=== PATIENT | female | born 1975 | race Caucasian/White ===

== ENCOUNTER 2019-01-31 21:43 | Emergency (ER) | payer OTHER ==
[2019-01-31 21:54] VITALS: BP 107/52; PULSE 66; TEMP 98.2; BMI 33.7
--- NOTE | 2019-01-31 23:31 | PDOC ---
History of Present Illness - General Chief Complaint: Migraine Headache Stated Complaint: MIGRAINE Past History - Past Medical History Allergies/Adverse Reactions: Allergies Allergy/AdvReac Type Severity Reaction Status Date / Time No Known Allergies Allergy Verified 01/31/19 21:50 COPD: No Psychiatric Problems: Yes (anxiety/depression/migraines) - Suicide/Smoking/Psychosocial Hx Smoking History: Never smoked Have you smoked in the past 12 months: No Information on smoking cessation initiated: No Hx Alcohol Use: No Drug/Substance Use Hx: No Review of Systems - Review of Systems Able to Perform ROS?: Yes Is the patient limited Upper Sorbian proficient: No *Physical Exam - Vital Signs Last Vital Signs Temp Pulse Resp BP Pulse Ox 98.2 F 66 16 107/52 L 100 01/31/19 21:50 01/31/19 21:50 01/31/19 21:50 01/31/19 21:50 01/31/19 21:50
--- NOTE | 2019-01-31 23:47 | PDOC ---
History of Present Illness - General Chief Complaint: Migraine Headache Stated Complaint: MIGRAINE History Source: Patient Exam Limitations: No Limitations - History of Present Illness Initial Comments: 01/31/19 23:42 43 yo female pmh migraines and depression presents to the ED for MORRIS and 3 episodes NB/NB vomiting. Pt states the MORRIS started around 9 pm, described as the same quality and intensity as past migraines with pounding headaches in the bilateral temporal region. Denies trauma, neck stiffness, LOC, weakness/sensory deficits on 1 side, changes in vision, F/C, CP, SOB, abdominal pain. Pt states she takes Excedrin with minimal relief and the only medication that works for her is Fiorocet but her Primary Doctor stopped prescribed it 1 year ago (no medical concern as per patient). Past History - Past Medical History Allergies/Adverse Reactions: Allergies Allergy/AdvReac Type Severity Reaction Status Date / Time No Known Allergies Allergy Verified 01/31/19 21:50 Home Medications: Ambulatory Orders NK [No Known Home Medication] 02/01/19 COPD: No Psychiatric Problems: Yes (anxiety/depression/migraines) - Suicide/Smoking/Psychosocial Hx Smoking History: Never smoked Have you smoked in the past 12 months: No Information on smoking cessation initiated: No Hx Alcohol Use: No Drug/Substance Use Hx: No Review of Systems - Review of Systems Constitutional: No: Chills, Fever HEENTM: No: Recent change in vision, Double Vision Respiratory: No: Shortness of Breath Cardiac (ROS): No: Chest Pain, Edema ABD/GI: Yes: Nausea, Vomiting (resolved). No: Constipated, Diarrhea, Abdominal cramping : No: Burning, Dysuria, Frequency, Flank Pain, Hematuria, Incontinence Musculoskeletal: No: Back Pain Neurological: Yes: Headache. No: Numbness, Paresthesia, Weakness, Unsteady Gait , Ataxia, Dizziness *Physical Exam - Vital Signs Last Vital Signs Temp Pulse Resp BP Pulse Ox 98.2 F 66 16 107/52 L 100 01/31/19 21:50 01/31/19 21:50 01/31/19 21:50 01/31/19 21:50 01/31/19 21:50 - Physical Exam General Appearance: Yes: Nourished, Appropriately Dressed. No: Apparent Distress HEENT: positive: EOMI, JENNY, Hearing Grossly Normal. negative: Photophobia, Scleral Icterus (R), Scleral Icterus (L) Neck: positive: Supple. negative: Carotid bruit Respiratory/Chest: positive: Lungs Clear, Normal Breath Sounds. negative: Crackles, Rales, Rhonchi, Wheezing Cardiovascular: positive: Regular Rhythm, Regular Rate, S1, S2. negative: Edema , JVD, Murmur Vascular Pulses: Dorsalis-Pedis (R): 4+, Doralis-Pedis (L): 4+ Gastrointestinal/Abdominal: positive: Flat, Soft. 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 negative: Facial Droop, Numbness, Sensory Deficit, Finger to Nose (normal), Confused, Disoriented Medical Decision Making - Medical Decision Making 02/01/19 00:29 43 yo female pmh migraines presents to the ED with MORRIS described as same quality and intensity as past migraines. Denies LOC, neck stiffness, trauma, neuro deficits, meningeal s/s. Vitals WNL DDX INLT: migraine, SAH (unlikely due to similar past morris and no neuro deficits) pseudotumor (unlikely, no visual s/s) Will trial pt with Fiorocet for headache and reassess. If pts MORRIS improves, she can safely be DC home with PCP f/u and Neuro referral *DC/Admit/Observation/Transfer Diagnosis at time of Disposition: Migraine - Discharge Dispostion Disposition: HOME Condition at time of disposition: Stable Decision to Admit order: No - Referrals Referrals: Ermias Garcia MD [Staff Physician] - - Patient Instructions Printed Discharge Instructions: DI for Migraine Additional Instructions: Please see your Primary Doctor within the next 48 hours and make an appointment with the Neurologist referred to you. Continue taking your home dosed medications as prescribed. Return to the ER for new or concerning symptoms including but not limited to: severe headaches, high fevers, changes in vision, weakness on 1 side of your body, confusion. Thank you - Post Discharge Activity
[2019-02-01] MEDS ORDERED: ACETAMINOPHEN/CAFFEINE/BUTALBITAL 1 TAB PO ONE (02:08)
--- NOTE | 2019-02-01 02:11 | PDOC ---
Documentation entered by Angela Contreras SCRIBE, acting as scribe for Janelle Jade MD. Janelle Jade MD: This documentation has been prepared by the Diane knight Adrianna, SCRIBE, under my direction and personally reviewed by me in its entirety. I confirm that the documentation accurately reflects all work, treatment, procedures, and medical decision making performed by me. Attending Attestation - Resident Resident Name: AdeelHector - ED Attending Attestation I have performed the following: I have examined & evaluated the patient, The case was reviewed & discussed with the resident, I agree w/resident's findings & plan, Exceptions are as noted - HPI HPI: The patient is a 43 year old female, with a significant PMH of migraines and depression, who presents to the ED for evaluation of headache and vomit for 3 hours. Patient notes her headache began earlier tonight, which is identical to her typical recurrent migraines. She notes the headache was felt in the bilateral frontal region, and she describes it as a pounding sensation. Reports was triggered by sitting out in the sun today which often brings on her migraines. +photophobia. She additionally reports 3 episodes of NBNB vomit which is also typical of her migraines. She took excedrin earlier tonight but was unable to keep it down secondary to the vomiting. Patient notes she has responded to Fioricet in the past, but her PCP stopped prescribing it. Denies neck pain, back pain, focal weakness/numbness, visual changes, cp, sob, abd pain , LE edema. Allergies: NKA, NKDA Surgical History: None reported Social History: None reported PCP: NOS - Physicial Exam PE: 02/01/19 02:08 GENERAL: Awake, alert, and fully oriented, in no acute distress HEAD: No signs of trauma EYES: PERRLA, EOMI, sclera anicteric, conjunctiva clear ENT: Auricles normal inspection, hearing grossly normal, nares patent, oropharynx clear without exudates. Moist mucosa NECK: Normal ROM, supple, no lymphadenopathy, JVD, or masses LUNGS: Breath sounds equal, clear to auscultation bilaterally. No wheezes, and no crackles HEART: Regular rate and rhythm, normal S1 and S2, no murmurs, rubs or gallops ABDOMEN: Soft, nontender, normoactive bowel sounds. No guarding, no rebound. No masses EXTREMITIES: Normal range of motion, no edema. No clubbing or cyanosis. No cords, erythema, or tenderness NEUROLOGICAL: Normal speech, cranial nerves intact, negative pronator drift, 5/ 5 strength in all 4 extremities, normal sensation to light touch in all 4 extremities, normal cerebellar exam, normal gait, normal reflexes and tone SKIN: Warm, Dry, normal turgor, no rashes or lesions noted. - Medical Decision Making 02/01/19 02:08 43yo F presents to the ED with typical migraine w/o aura. No change in quality or severity today. In the past, responds well to fioricet but ran out at home Vitals and exam unremarakble. Pt is neuro intact UPT neg WIll order dose fioricet, reassess Case signed out to overnight attending for further mgmt/dispo
[2019-02-01] MEDS ORDERED: ACETAMINOPHEN/CAFFEINE/BUTALBITAL 1 TAB ONE (02:44)
== END 2019-02-01 03:02 | disposition home or self-care (01) ==
LOC: JER 21:43 → EDBD 21:43 → JERFT 21:43 → JER 02-01 03:02
DX: G43.909 Migraine, unspecified, not intractable, without status migrainosus (principal)
CPT/HCPCS: 84703; 99281-25

== ENCOUNTER → 2021-11-16 | Day surgery (SDC) | payer OTHER | END | disposition home or self-care (01) | LOC: JRADUS-SUR 10:50 | PROVIDERS: ATTEND Registered Nurse | PROC: 0HBU3ZX Excision of Left Breast, Percutaneous Approach, Diagnostic (ICD-10-PCS; principal; 2021-11-16) | PROC: 07B63ZX Excision of Left Axillary Lymphatic, Percutaneous Approach, Diagnostic (ICD-10-PCS; 2021-11-16) | PROC: BH41ZZZ Ultrasonography of Left Breast (ICD-10-PCS; 2021-11-16) | DX: C50.412 Malignant neoplasm of upper-outer quadrant of left female breast (principal); C50.812 Malignant neoplasm of overlapping sites of left female breast; C77.3 Secondary and unspecified malignant neoplasm of axilla and upper limb lymph nodes; Z17.0 Estrogen receptor positive status [ER+] | CPT/HCPCS: 19083; 19084; 76642-TC-LT; 77065-TC; 87899; 88305-TC; 88307-TC; 88342-TC; A4648 ==

== ENCOUNTER 2022-01-18 07:46 | Day surgery (SDC) | payer OTHER ==
[2022-01-18] MEDS ORDERED: DEXAMETHASONE SODIUM PHOSPHATE 10 MG in SODIUM CHLORIDE 50 ML IVPB ONE (10:00)
[2022-01-18] MEDS ORDERED: SODIUM CHLORIDE 250 ML IV ONE (10:00)
[2022-01-18] MEDS ORDERED: FOSAPREPITANT DIMEGLUMINE 150 MG in SODIUM CHLORIDE 145 ML IVPB ONE (10:00)
[2022-01-18] MEDS ORDERED: PALONOSETRON HCL 0.25 MG/5 ML VIAL IVPUSH ONE (10:00)
[2022-01-18] MEDS ORDERED: DOCETAXEL 124 MG in SODIUM CHLORIDE 250 ML IV ONE (10:30)
[2022-01-18] MEDS ORDERED: CYCLOPHOSPHAMIDE INJECTION 980 MG in SODIUM CHLORIDE 250 ML IVPB ONE (11:30)
[2022-01-18 11:50] LABS: BASO % 0.7 % (0-2.0); EOS % 1.2 % (0-4.5); HEMATOCRIT 37.7 % (32.4-45.2); HEMOGLOBIN 12.6 GM/dL (10.7-15.3); LYMPH % 38.7 % (8-40); MCH 28.9 pg (25.7-33.7); MCHC 33.4 g/dl (32.0-36.0); MEAN CELL VOLUME 86.4 fl (80-96); MEAN PLT VOLUME 9.4 fl (7.5-11.1); MONO % 8.8 % (3.8-10.2); NEUT % 50.6 % (42.8-82.8); PLATELET COUNT 227 10^3/uL (134-434); RBC 4.37 M/mm3 (3.60-5.2); RDW 14.1 % (11.6-15.6); WHITE BLOOD COUNT 3.7 K/mm3 (4.0-10.0)
[2022-01-18 12:11] LABS: BLOOD UREA NITROGEN 11.1 mg/dL (7-18); CALCIUM 9.2 mg/dL (8.5-10.1)
[2022-01-18 12:12] LABS: ALBUMIN 3.7 g/dl (3.4-5.0); MAGNESIUM 1.9 mg/dL (1.8-2.4)
[2022-01-18 12:14] LABS: BILIRUBIN,DIRECT 0.1 mg/dL (0.0-0.2)
[2022-01-18 12:15] LABS: CREATININE 0.6 mg/dL (0.55-1.3)
[2022-01-18 12:16] LABS: BILIRUBIN,TOTAL 0.4 mg/dL (0.2-1); TOT PROT 7.8 g/dl (6.4-8.2)
[2022-01-18 17:05] VITALS: BP 130/72; PULSE 68; TEMP 98.8
[2022-01-18] MEDS ORDERED: PORTA CATH FLUSH 10 ML IVPUSH PRN (17:05)
== END 2022-01-18 16:30 | disposition home or self-care (01) ==
LOC: JONCCHEMO 07:46
PROVIDERS: ATTEND Internal Medicine Hematology & Oncology
DX: Z51.11 Encounter for antineoplastic chemotherapy (principal); C50.412 Malignant neoplasm of upper-outer quadrant of left female breast; C77.3 Secondary and unspecified malignant neoplasm of axilla and upper limb lymph nodes; Z17.0 Estrogen receptor positive status [ER+]
CPT/HCPCS: 36415; 80048; 80076; 82378; 83735; 85025; 86300; 96361; 96367; 96375; 96413; 96417; J1453; J2469; J9070; J9171

== ENCOUNTER 2022-01-19 07:05 | Day surgery (SDC) | payer OTHER ==
[2022-01-19] MEDS ORDERED: PEGFILGRASTIM-CBQV (UDENYCA) 6 MG/0.6 ML SYRINGE SQ ONE (14:00)
[2022-01-19] MEDS ORDERED: MAGNESIUM 1GM/D5W - 1 GM/100 ML IVPB IVPB ONE (14:00)
[2022-01-19] MEDS ORDERED: D5-NS + 20 MEQ KCL - 20 MEQ/1,000 ML INFUS.BAG IV ONE (14:00)
[2022-01-19] MEDS ORDERED: DEXAMETHASONE SODIUM PHOSPHATE 8 MG in SODIUM CHLORIDE 50 ML IVPB ONE (14:00)
[2022-01-19 16:19] VITALS: BP 132/66; PULSE 63; TEMP 98.5
[2022-01-19] MEDS ORDERED: PORTA CATH FLUSH 10 ML IVPUSH PRN (16:19)
== END 2022-01-19 16:30 | disposition home or self-care (01) ==
LOC: JONCCHEMO 07:05
PROVIDERS: ATTEND Internal Medicine Hematology & Oncology
PROC: 3E043GC Introduction of Other Therapeutic Substance into Central Vein, Percutaneous Approach (ICD-10-PCS; principal; 2022-01-19)
PROC: 3E013GC Introduction of Other Therapeutic Substance into Subcutaneous Tissue, Percutaneous Approach (ICD-10-PCS; 2022-01-19)
DX: C50.412 Malignant neoplasm of upper-outer quadrant of left female breast (principal); C77.3 Secondary and unspecified malignant neoplasm of axilla and upper limb lymph nodes; Z17.0 Estrogen receptor positive status [ER+]; Z76.89 Persons encountering health services in other specified circumstances
CPT/HCPCS: 96365; 96366; 96367; 96372; 96375; Q5111

== ENCOUNTER 2022-01-23 08:42 | Emergency (ER) | payer OTHER ==
[2022-01-23 08:53] VITALS: BP 118/61; PULSE 105; TEMP 99.6; BMI 43.2
[2022-01-23] MEDS ORDERED: SODIUM CHLORIDE 0.9% 500 ML INFUS.BAG IV ONE (10:09)
[2022-01-23] MEDS ORDERED: METOCLOPRAMIDE HCL INJECTION 10 MG/2 ML VIAL IVPB ONE (10:09)
[2022-01-23] MEDS ORDERED: ACETAMINOPHEN 1000 MG/100 ML BAG IVPB ONE (10:09)
[2022-01-23] MEDS ORDERED: METOCLOPRAMIDE HCL INJECTION 10 MG/2 ML VIAL ONE (10:47)
[2022-01-23] MEDS ORDERED: ACETAMINOPHEN INJECTION 100 ML IVPB ONE (10:47)
[2022-01-23] MEDS ORDERED: KETOROLAC TROMETHAMINE 15 MG/ML VIAL IVPUSH ONE (12:14)
[2022-01-23] MEDS ORDERED: KETOROLAC TROMETHAMINE 15 MG/ML VIAL ONE (12:38)
== END 2022-01-23 12:56 | disposition home or self-care (01) ==
LOC: JER 08:42
PROC: 3E033GC Introduction of Other Therapeutic Substance into Peripheral Vein, Percutaneous Approach (ICD-10-PCS; principal; 2022-01-23)
DX: G43.909 Migraine, unspecified, not intractable, without status migrainosus (principal)
CPT/HCPCS: 96374; 96375; 99284-25

== ENCOUNTER 2022-02-07 07:31 | Day surgery (SDC) | payer OTHER ==
[2022-02-07] MEDS ORDERED: SODIUM CHLORIDE 250 ML IV ONE (09:00)
[2022-02-07] MEDS ORDERED: FOSAPREPITANT DIMEGLUMINE 150 MG in SODIUM CHLORIDE 145 ML IVPB ONE (09:30)
[2022-02-07] MEDS ORDERED: DEXAMETHASONE SODIUM PHOSPHATE 8 MG in SODIUM CHLORIDE 50 ML IVPB ONE (09:30)
[2022-02-07] MEDS ORDERED: PALONOSETRON HCL 0.25 MG/5 ML VIAL IVPUSH ONE (09:30)
[2022-02-07] MEDS ORDERED: DOCETAXEL 120 MG in SODIUM CHLORIDE 250 ML IV ONE (10:00)
[2022-02-07] MEDS ORDERED: CYCLOPHOSPHAMIDE INJECTION 980 MG in SODIUM CHLORIDE 250 ML IVPB ONE (11:00)
[2022-02-07 11:58] VITALS: TEMP 98.5
[2022-02-07 17:42] VITALS: BP 121/71; PULSE 84
[2022-02-07] MEDS ORDERED: PORTA CATH FLUSH 10 ML IVPUSH PRN (17:42)
== END 2022-02-07 15:30 | disposition home or self-care (01) ==
LOC: JONCCHEMO 07:31
PROVIDERS: ATTEND Internal Medicine Hematology & Oncology
PROC: 3E043GC Introduction of Other Therapeutic Substance into Central Vein, Percutaneous Approach (ICD-10-PCS; principal; 2022-02-07)
PROC: 3E013GC Introduction of Other Therapeutic Substance into Subcutaneous Tissue, Percutaneous Approach (ICD-10-PCS; 2022-02-07)
DX: C50.412 Malignant neoplasm of upper-outer quadrant of left female breast (principal); C77.3 Secondary and unspecified malignant neoplasm of axilla and upper limb lymph nodes; Z17.0 Estrogen receptor positive status [ER+]; Z76.89 Persons encountering health services in other specified circumstances
CPT/HCPCS: 96361; 96365; 96372; 96375; J1453; J2469; J9070; J9171

== ENCOUNTER 2022-02-08 07:56 | Day surgery (SDC) | payer OTHER ==
[2022-02-07 11:56] LABS: BASO % 0.4 % (0-2.0); HEMATOCRIT 36.1 % (32.4-45.2); MCH 28.6 pg (25.7-33.7); MCHC 33.2 g/dl (32.0-36.0); MEAN CELL VOLUME 85.9 fl (80-96); MEAN PLT VOLUME 9.3 fl (7.5-11.1); MONO % 13.2 % (3.8-10.2); NEUT % 57.4 % (42.8-82.8); PLATELET COUNT 314 10^3/uL (134-434); RDW 14.3 % (11.6-15.6); WHITE BLOOD COUNT 6.2 K/mm3 (4.0-10.0)
[2022-02-07 12:16] LABS: ALBUMIN 3.8 g/dl (3.4-5.0); CALCIUM 9.8 mg/dL (8.5-10.1)
[2022-02-07 12:20] LABS: BILIRUBIN,DIRECT 0.1 mg/dL (0.0-0.2); BILIRUBIN,TOTAL 0.4 mg/dL (0.2-1); CREATININE 0.5 mg/dL (0.55-1.3)
[2022-02-07 12:21] LABS: TOT PROT 7.3 g/dl (6.4-8.2)
[2022-02-08] MEDS ORDERED: D5-NS + 20 MEQ KCL - 20 MEQ/1,000 ML INFUS.BAG IV ONE (09:00)
[2022-02-08] MEDS ORDERED: DEXAMETHASONE SODIUM PHOSPHATE 6 MG in SODIUM CHLORIDE 50 ML IVPB ONE (10:00)
[2022-02-08] MEDS ORDERED: MAGNESIUM 1GM/D5W - 1 GM/100 ML IVPB IVPB ONE (10:00)
[2022-02-08] MEDS ORDERED: PEGFILGRASTIM-CBQV (UDENYCA) 6 MG/0.6 ML SYRINGE SQ ONE (10:00)
[2022-02-08 13:48] VITALS: TEMP 98.7
[2022-02-08 18:26] VITALS: BP 93/53; PULSE 69
[2022-02-08] MEDS ORDERED: PORTA CATH FLUSH 10 ML IVPUSH PRN (18:26)
== END 2022-02-08 17:00 | disposition home or self-care (01) ==
LOC: JONCCHEMO 07:56
PROVIDERS: ATTEND Internal Medicine Hematology & Oncology
PROC: 3E043GC Introduction of Other Therapeutic Substance into Central Vein, Percutaneous Approach (ICD-10-PCS; principal; 2022-02-08)
PROC: 3E013GC Introduction of Other Therapeutic Substance into Subcutaneous Tissue, Percutaneous Approach (ICD-10-PCS; 2022-02-08)
DX: C50.412 Malignant neoplasm of upper-outer quadrant of left female breast (principal); C77.3 Secondary and unspecified malignant neoplasm of axilla and upper limb lymph nodes; Z17.0 Estrogen receptor positive status [ER+]; Z76.89 Persons encountering health services in other specified circumstances
CPT/HCPCS: 36415; 80048; 80076; 83735; 85025; 96365; 96372; 96375; Q5111

== ENCOUNTER 2022-02-28 07:20 | Day surgery (SDC) | payer OTHER ==
[2022-02-28] MEDS ORDERED: FOSAPREPITANT DIMEGLUMINE 150 MG in SODIUM CHLORIDE 145 ML IVPB ONE (10:00)
[2022-02-28] MEDS ORDERED: PALONOSETRON HCL 0.25 MG/5 ML VIAL IVPUSH ONE (10:00)
[2022-02-28] MEDS ORDERED: SODIUM CHLORIDE 250 ML IV ONE (10:00)
[2022-02-28] MEDS ORDERED: DEXAMETHASONE SODIUM PHOSPHATE 8 MG in SODIUM CHLORIDE 50 ML IVPB ONE (10:00)
[2022-02-28] MEDS ORDERED: DOCETAXEL 120 MG in SODIUM CHLORIDE 250 ML IV ONE (10:30)
[2022-02-28 10:45] LABS: BASO % 0.8 % (0-2.0); EOS % 0.1 % (0-4.5); HEMATOCRIT 33.8 % (32.4-45.2); HEMOGLOBIN 11.3 GM/dL (10.7-15.3); LYMPH % 26.5 % (8-40); MCH 28.5 pg (25.7-33.7); MCHC 33.4 g/dl (32.0-36.0); MEAN CELL VOLUME 85.3 fl (80-96); MEAN PLT VOLUME 9.1 fl (7.5-11.1); MONO % 10.8 % (3.8-10.2); NEUT % 61.8 % (42.8-82.8); PLATELET COUNT 288 10^3/uL (134-434); RBC 3.96 M/mm3 (3.60-5.2); RDW 14.8 % (11.6-15.6); WHITE BLOOD COUNT 5.8 K/mm3 (4.0-10.0)
[2022-02-28 11:06] LABS: CHLORIDE 108 mmol/L (98-107); SODIUM 142 mmol/L (136-145)
[2022-02-28 11:09] LABS: BLOOD UREA NITROGEN 9.3 mg/dL (7-18); CALCIUM 9.4 mg/dL (8.5-10.1); GLUCOSE,RANDOM 85 mg/dL (74-106)
[2022-02-28 11:10] LABS: ALBUMIN 3.7 g/dl (3.4-5.0); ANION GAP 10 MMOL/L (8-16); CO2 24 mmol/L (21-32); MAGNESIUM 1.9 mg/dL (1.8-2.4)
[2022-02-28 11:13] LABS: CREATININE 0.5 mg/dL (0.55-1.3); SGOT/AST 19 U/L (15-37); SGPT/ALT 28 U/L (13-61)
[2022-02-28 11:14] LABS: TOT PROT 7.4 g/dl (6.4-8.2)
[2022-02-28 11:15] LABS: ALK PHOS 94 U/L (45-117)
[2022-02-28 11:17] LABS: BILIRUBIN,TOTAL 0.4 mg/dL (0.2-1)
[2022-02-28 11:19] LABS: BILIRUBIN,DIRECT < 0.1 mg/dL (0.0-0.2)
[2022-02-28] MEDS ORDERED: CYCLOPHOSPHAMIDE INJECTION 980 MG in SODIUM CHLORIDE 250 ML IVPB ONE (11:30)
[2022-02-28 14:33] VITALS: RESP 18; TEMP 98.5
[2022-02-28 14:36] VITALS: BP 106/63; PULSE 74
== END 2022-02-28 14:37 | disposition home or self-care (01) ==
LOC: JONCCHEMO 07:20
PROVIDERS: ATTEND Internal Medicine Hematology & Oncology
DX: Z51.11 Encounter for antineoplastic chemotherapy (principal); C50.412 Malignant neoplasm of upper-outer quadrant of left female breast; C77.3 Secondary and unspecified malignant neoplasm of axilla and upper limb lymph nodes; Z17.0 Estrogen receptor positive status [ER+]
CPT/HCPCS: 36415; 80048; 80076; 83735; 85025; 96367; 96375; 96413; 96417; J1453; J2469; J9070; J9171

== ENCOUNTER 2022-03-01 07:01 | Day surgery (SDC) | payer OTHER ==
[2022-03-01] MEDS ORDERED: D5-NS + 20 MEQ KCL - 20 MEQ/1,000 ML INFUS.BAG IV ONE (10:00)
[2022-03-01] MEDS ORDERED: MAGNESIUM 1GM/D5W - 1 GM/100 ML IVPB IVPB ONE (10:00)
[2022-03-01] MEDS ORDERED: PEGFILGRASTIM-CBQV (UDENYCA) 6 MG/0.6 ML SYRINGE SQ ONE (10:00)
[2022-03-01] MEDS ORDERED: DEXAMETHASONE SODIUM PHOSPHATE 6 MG in DEXTROSE 5%-WATER - 50 ML IVPB ONE (10:00)
[2022-03-01 14:54] VITALS: BP 106/63; PULSE 80; RESP 20; TEMP 98.5
[2022-03-01] MEDS ORDERED: PORTA CATH FLUSH 10 ML IVPUSH PRN (14:56)
== END 2022-03-01 15:38 | disposition home or self-care (01) ==
LOC: JONCCHEMO 07:01
PROVIDERS: ATTEND Internal Medicine Hematology & Oncology
PROC: 3E043GC Introduction of Other Therapeutic Substance into Central Vein, Percutaneous Approach (ICD-10-PCS; principal; 2022-03-01)
PROC: 3E013GC Introduction of Other Therapeutic Substance into Subcutaneous Tissue, Percutaneous Approach (ICD-10-PCS; 2022-03-01)
DX: C50.412 Malignant neoplasm of upper-outer quadrant of left female breast (principal); C77.3 Secondary and unspecified malignant neoplasm of axilla and upper limb lymph nodes; Z17.0 Estrogen receptor positive status [ER+]
CPT/HCPCS: 96365; 96372; 96375; Q5111

== ENCOUNTER 2022-03-21 08:14 | Day surgery (SDC) | payer OTHER ==
[2022-03-21] MEDS ORDERED: SODIUM CHLORIDE 250 ML IV ONE (09:00)
[2022-03-21] MEDS ORDERED: FOSAPREPITANT DIMEGLUMINE 150 MG in SODIUM CHLORIDE 145 ML IVPB ONE (10:00)
[2022-03-21] MEDS ORDERED: PALONOSETRON HCL 0.25 MG/5 ML VIAL IVPUSH ONE (10:00)
[2022-03-21] MEDS ORDERED: DEXAMETHASONE SODIUM PHOSPHATE 8 MG in SODIUM CHLORIDE 50 ML IVPB ONE (10:00)
[2022-03-21] MEDS ORDERED: DOCETAXEL 120 MG in SODIUM CHLORIDE 250 ML IV ONE (10:30)
[2022-03-21] MEDS ORDERED: CYCLOPHOSPHAMIDE INJECTION 980 MG in SODIUM CHLORIDE 250 ML IVPB ONE (11:30)
[2022-03-21 11:41] LABS: BASO % 0.7 % (0-2.0); EOS % 0.1 % (0-4.5); HEMATOCRIT 31.5 % (32.4-45.2); HEMOGLOBIN 10.6 GM/dL (10.7-15.3); LYMPH % 30.8 % (8-40); MCH 29.2 pg (25.7-33.7); MCHC 33.6 g/dl (32.0-36.0); MEAN CELL VOLUME 86.8 fl (80-96); MEAN PLT VOLUME 9.1 fl (7.5-11.1); MONO % 13.5 % (3.8-10.2); NEUT % 54.9 % (42.8-82.8); PLATELET COUNT 276 10^3/uL (134-434); RBC 3.62 M/mm3 (3.60-5.2); RDW 16.7 % (11.6-15.6); WHITE BLOOD COUNT 4.3 K/mm3 (4.0-10.0)
[2022-03-21 12:08] LABS: ALBUMIN 3.8 g/dl (3.4-5.0); CALCIUM 9.4 mg/dL (8.5-10.1); MAGNESIUM 2.1 mg/dL (1.8-2.4)
[2022-03-21 12:09] LABS: BLOOD UREA NITROGEN 12.7 mg/dL (7-18)
[2022-03-21 12:11] VITALS: RESP 18
[2022-03-21 12:11] LABS: BILIRUBIN,DIRECT 0.1 mg/dL (0.0-0.2); CREATININE 0.6 mg/dL (0.55-1.3)
[2022-03-21 12:13] LABS: BILIRUBIN,TOTAL 0.3 mg/dL (0.2-1); TOT PROT 7.1 g/dl (6.4-8.2)
[2022-03-21 14:47] VITALS: TEMP 98
[2022-03-21] MEDS ORDERED: PORTA CATH FLUSH 10 ML IVPUSH PRN (14:50)
[2022-03-21 15:50] VITALS: BP 93/42; PULSE 75
== END 2022-03-21 15:53 | disposition home or self-care (01) ==
LOC: JONCCHEMO 08:14
PROVIDERS: ATTEND Internal Medicine Hematology & Oncology
DX: Z51.11 Encounter for antineoplastic chemotherapy (principal); C50.412 Malignant neoplasm of upper-outer quadrant of left female breast; C77.3 Secondary and unspecified malignant neoplasm of axilla and upper limb lymph nodes; Z17.0 Estrogen receptor positive status [ER+]
CPT/HCPCS: 36415; 80048; 80076; 82378; 83735; 85025; 96367; 96375; 96413; 96417; J1453; J2469; J9070; J9171

== ENCOUNTER 2022-03-22 07:09 | Day surgery (SDC) | payer OTHER ==
[2022-03-22] MEDS ORDERED: MAGNESIUM 1GM/D5W - 1 GM/100 ML IVPB IVPB ONE (10:00)
[2022-03-22] MEDS ORDERED: PEGFILGRASTIM-CBQV (UDENYCA) 6 MG/0.6 ML SYRINGE SQ ONE (10:00)
[2022-03-22] MEDS ORDERED: DEXAMETHASONE SODIUM PHOSPHATE 6 MG in DEXTROSE 5%-WATER - 50 ML IVPB ONE (10:00)
[2022-03-22] MEDS ORDERED: D5-NS + 20 MEQ KCL - 20 MEQ/1,000 ML INFUS.BAG IV ONE (10:00)
[2022-03-22 15:44] VITALS: BP 103/63; PULSE 63; RESP 18; TEMP 98.6
== END 2022-03-22 15:30 | disposition home or self-care (01) ==
LOC: JONCCHEMO 07:09
PROVIDERS: ATTEND Internal Medicine Hematology & Oncology
PROC: 3E013GC Introduction of Other Therapeutic Substance into Subcutaneous Tissue, Percutaneous Approach (ICD-10-PCS; principal; 2022-03-22)
PROC: 3E043GC Introduction of Other Therapeutic Substance into Central Vein, Percutaneous Approach (ICD-10-PCS; 2022-03-22)
DX: C50.412 Malignant neoplasm of upper-outer quadrant of left female breast (principal); C77.3 Secondary and unspecified malignant neoplasm of axilla and upper limb lymph nodes; Z17.0 Estrogen receptor positive status [ER+]
CPT/HCPCS: 96361; 96365; 96372; 96375; Q5111

== ENCOUNTER 2022-03-26 04:00 | Emergency (ER) | payer OTHER ==
[2022-03-26] MEDS ORDERED: DEXAMETHASONE SOD PHOSPHATE 10 MG/1 ML VIAL IM ONE (05:00)
[2022-03-26] MEDS ORDERED: METOCLOPRAMIDE HCL INJECTION 10 MG/2 ML VIAL IVPB ONE (05:00)
[2022-03-26] MEDS ORDERED: LACTATED RINGERS SOLUTION 1000 ML INFUS.BAG IV ONE (05:00)
[2022-03-26] MEDS ORDERED: ACETAMINOPHEN 1000 MG/100 ML BAG IVPB ONE (05:00)
[2022-03-26] MEDS ORDERED: KETOROLAC TROMETHAMINE 15 MG/ML VIAL IVPUSH ONE (05:00)
[2022-03-26 05:01] VITALS: BP 106/53; PULSE 95; RESP 18; TEMP 98.5; BMI 40.5
[2022-03-26] MEDS ORDERED: ACETAMINOPHEN INJECTION 100 ML IVPB ONE (05:13)
[2022-03-26] MEDS ORDERED: KETOROLAC TROMETHAMINE 15 MG/ML VIAL ONE (05:13)
[2022-03-26] MEDS ORDERED: DEXAMETHASONE SOD PHOSPHATE 10 MG/1 ML VIAL ONE (05:13)
[2022-03-26] MEDS ORDERED: METOCLOPRAMIDE HCL INJECTION 10 MG/2 ML VIAL ONE (05:13)
[2022-03-26] MEDS: DEXAMETHASONE SOD PHOSPHATE 10 MG/1 ML VIAL IVPUSH ONE ×2 (05:29)
[2022-03-26 05:35] LABS: HEMATOCRIT 31.8 % (32.4-45.2); HEMOGLOBIN 10.4 GM/dL (10.7-15.3); MCH 28.5 pg (25.7-33.7); MCHC 32.9 g/dl (32.0-36.0); MEAN CELL VOLUME 86.6 fl (80-96); PLATELET COUNT 166 10^3/uL (134-434); RBC 3.67 M/mm3 (3.60-5.2); RDW 16.1 % (11.6-15.6)
[2022-03-26 05:53] LABS: ALBUMIN 3.5 g/dl (3.4-5.0); BLOOD UREA NITROGEN 8.5 mg/dL (7-18)
[2022-03-26 05:57] LABS: CREATININE 0.5 mg/dL (0.55-1.3)
[2022-03-26 05:59] LABS: BILIRUBIN,TOTAL 0.6 mg/dL (0.2-1)
[2022-03-26 08:46] LABS: ANISOCYTOSIS 0; HELMET CELLS 0; HOWELL-JOLLY BODIES 0; MACROCYTOSIS 0; OVALOCYTE 0; ROULEAU 0; SICKELED CELLS 0; TARGET CELLS 0; TEAR DROP CELLS 0; TOXIC GRANULATION 0
== END 2022-03-26 06:57 ==
LOC: JER 04:00
PROC: 3E0333Z Introduction of Anti-inflammatory into Peripheral Vein, Percutaneous Approach (ICD-10-PCS; principal; 2022-03-26)
PROC: 3E0333Z Introduction of Anti-inflammatory into Peripheral Vein, Percutaneous Approach (ICD-10-PCS; 2022-03-26)
PROC: 3E033GC Introduction of Other Therapeutic Substance into Peripheral Vein, Percutaneous Approach (ICD-10-PCS; 2022-03-26)
PROC: 3E0233Z Introduction of Anti-inflammatory into Muscle, Percutaneous Approach (ICD-10-PCS; 2022-03-26)
DX: G43.909 Migraine, unspecified, not intractable, without status migrainosus (principal); R07.9 Chest pain, unspecified
CPT/HCPCS: 36415; 71045-TC-FY; 80053; 84484; 85025; 93005; 93010; 99285-25; C9803-CS; J1100; U0003; U0005

== ENCOUNTER → 2022-05-03 | Day surgery (SDC) | payer OTHER ==
[~2022-05-03] MED LIST: ACETAMINOPHEN INJECTION 100 ML IVPB ONE; CALCIUM CHLORIDE 1 GM/10 ML *DISP.SYRIN ONE; DEXAMETHASONE SOD PHOSPHATE 4 MG/1 ML VIAL ONE; DEXMEDETOMIDINE HCL 200 MCG/2 ML IVPB ONE; GLYCOPYRROLATE 0.2 MG/1 ML VIAL ONE; HYDROmorphone HCl 2 MG/ML VIAL ONE; KETAMINE HCL 200 MG/20 ML VIAL ONE; KETOROLAC TROMETHAMINE 30 MG/1 ML VIAL ONE; MIDAZOLAM HCL 2 MG/2 ML SINGLE DOSE VIAL ONE; NEOSTIGMINE METHYLSULFATE 0.5 MG/1 ML - 10 ML MDV ONE; ONDANSETRON 4 MG/2 ML VIAL ONE; PHENYLEPHRINE HCL 10 MG/1 ML SINGLE DOSE VIAL ONE; PROPOFOL 20 ML ONE; ROCURONIUM BROMIDE 50 MG/5 ML SYRINGE ONE; SUCCINYLCHOLINE CHLORIDE 200 MG/10 ML SYRINGE ONE; ceFAZolin SODIUM 1 GM VIAL ONE
== END | disposition home or self-care (01) ==
LOC: JRADUS-SUR 08:53
PROVIDERS: ATTEND Surgery Surgical Oncology
PROC: BH41ZZZ Ultrasonography of Left Breast (ICD-10-PCS; principal; 2022-05-03)
DX: C50.912 Malignant neoplasm of unspecified site of left female breast (principal)
CPT/HCPCS: 19281; A4648

== ENCOUNTER 2022-05-10 06:37 | Inpatient (IN) | payer OTHER ==
[2022-05-09 10:38] VITALS: BMI 37.7
[2022-05-10] MEDS ORDERED: ONDANSETRON 4 MG/2 ML VIAL IVPUSH PRN (06:55)
[2022-05-10] MEDS ORDERED: LACTATED RINGERS SOLUTION 1,000 ML IV SCH (07:00)
[2022-05-10] MEDS ORDERED: ceFAZolin SODIUM 1 GM VIAL IVPB ONE (08:50)
[2022-05-10] MEDS ORDERED: ceFAZolin SODIUM 1 GM VIAL ONE (08:52)
[2022-05-10] MEDS ORDERED: GENTAMICIN SO4 80 MG/2 ML VIAL ONE (08:52)
[2022-05-10] MEDS ORDERED: oxyCODONE HCL 5 MG TABLET PO PRN ×3 (10:58→12:36)
[2022-05-10] MEDS ORDERED: ARTIFICIAL SALIVA PO SCH (11:00)
[2022-05-10] MEDS ORDERED: ONDANSETRON 4 MG/2 ML VIAL IVPB PRN (12:36)
[2022-05-10] MEDS ORDERED: HEPARIN NA (PORCINE) 5,000 UNITS/ML 1ML VIAL SQ SCH (14:00)
[2022-05-10 14:12] VITALS: RESP 18
[2022-05-10] MEDS: LACTATED RINGERS SOLUTION 1,000 ML IV SCH ×2 (15:00→21:32)
[2022-05-10] MEDS: CEFAZOLIN 1 GM in DEXTROSE 5%-WATER - 50 ML IVPB SCH (17:25)
[2022-05-10] MEDS ORDERED: traZODone HCL 100 MG TABLET (FP) PO SCH (22:00)
[2022-05-11] MEDS: CEFAZOLIN 1 GM in DEXTROSE 5%-WATER - 50 ML IVPB SCH ×2 (01:34→09:23)
[2022-05-11] MEDS ORDERED: HEPARIN NA (PORCINE) 5,000 UNITS/ML 1ML VIAL SQ SCH ×3 (06:00→08:00)
[2022-05-11] MEDS ORDERED: ACETAMINOPHEN 325 MG TABLET (FP) PO PRN (06:33)
[2022-05-11] MEDS ORDERED: oxyCODONE HCL 5 MG TABLET PO PRN (07:27)
[2022-05-11 08:55] LABS: BASO % 0.2 % (0-2.0); HEMATOCRIT 29.4 % (32.4-45.2); HEMOGLOBIN 9.7 GM/dL (10.7-15.3); MEAN CELL VOLUME 87.9 fl (80-96); MEAN PLT VOLUME 8.9 fl (7.5-11.1); MONO % 8.5 % (3.8-10.2); NEUT % 72.3 % (42.8-82.8); PLATELET COUNT 202 10^3/uL (134-434); RBC 3.35 M/mm3 (3.60-5.2); RDW 15.5 % (11.6-15.6); WHITE BLOOD COUNT 6.3 K/mm3 (4.0-10.0)
[2022-05-11 09:50] LABS: BLOOD UREA NITROGEN 10.1 mg/dL (7-18)
[2022-05-11 09:53] LABS: CALCIUM 9.1 mg/dL (8.5-10.1)
[2022-05-11 09:59] LABS: CREATININE 0.5 mg/dL (0.55-1.3)
[2022-05-11 14:55] VITALS: BP 106/60; PULSE 88; TEMP 98
== END 2022-05-11 15:53 | disposition home health service (06) | DRG 362 ==
LOC: J2C 06:37 → J6S 14:57
PROVIDERS: ADMIT Surgery Surgical Oncology; ATTEND Plastic Surgery
PROC: 4A1GXSH Monitoring of Skin and Breast Vascular Perfusion using Indocyanine Green Dye, External Approach (ICD-10-PCS; 2022-05-10)
PROC: 0HTU0ZZ Resection of Left Breast, Open Approach (ICD-10-PCS; principal; 2022-05-10 08:00)
PROC: 07B60ZZ Excision of Left Axillary Lymphatic, Open Approach (ICD-10-PCS; 2022-05-10 08:00)
PROC: 0HHU0NZ Insertion of Tissue Expander into Left Breast, Open Approach (ICD-10-PCS; 2022-05-10 08:00)
DX: C50.912 Malignant neoplasm of unspecified site of left female breast (principal)
CPT/HCPCS: 36415; 78195-TC; 80048; 81025; 85025; 86850; 86900; 86901; 88307-TC; 88309-TC; 88341-TC; 94010; 94760; A9541; C9803-CS; J1644; Q4116; U0003; U0005

== ENCOUNTER 2022-08-13 11:54 | Emergency (ER) | payer OTHER ==
[2022-08-13 11:59] VITALS: BP 122/58; PULSE 99; RESP 18; TEMP 99; BMI 40.5
== END 2022-08-13 13:15 | disposition home or self-care (01) ==
LOC: JER 11:54
DX: L58.9 Radiodermatitis, unspecified (principal)
CPT/HCPCS: 99281-25

== ENCOUNTER 2022-09-13 10:43 | Day surgery (SDC) | payer OTHER ==
[~2022-09-13 10:43] MED LIST changes: -ACETAMINOPHEN INJECTION 100 ML IVPB ONE; -CALCIUM CHLORIDE 1 GM/10 ML *DISP.SYRIN ONE; -DEXAMETHASONE SOD PHOSPHATE 4 MG/1 ML VIAL ONE; -DEXMEDETOMIDINE HCL 200 MCG/2 ML IVPB ONE; -GLYCOPYRROLATE 0.2 MG/1 ML VIAL ONE; +GOSERELIN ACETATE 3.6 MG IMPLANT SYRINGE SQ ONE; -HYDROmorphone HCl 2 MG/ML VIAL ONE; -KETAMINE HCL 200 MG/20 ML VIAL ONE; -KETOROLAC TROMETHAMINE 30 MG/1 ML VIAL ONE; +LIDOCAINE HCL 1%, 10 MG/ML (20ML VIAL) ID ONE; -MIDAZOLAM HCL 2 MG/2 ML SINGLE DOSE VIAL ONE; -NEOSTIGMINE METHYLSULFATE 0.5 MG/1 ML - 10 ML MDV ONE; -ONDANSETRON 4 MG/2 ML VIAL ONE; -PHENYLEPHRINE HCL 10 MG/1 ML SINGLE DOSE VIAL ONE; -PROPOFOL 20 ML ONE; -ROCURONIUM BROMIDE 50 MG/5 ML SYRINGE ONE; -SUCCINYLCHOLINE CHLORIDE 200 MG/10 ML SYRINGE ONE; -ceFAZolin SODIUM 1 GM VIAL ONE
[2022-09-13 11:25] LABS: BASO % 0.3 % (0-2.0); EOS % 0.9 % (0-4.5); HEMATOCRIT 34.5 % (32.4-45.2); HEMOGLOBIN 11.5 GM/dL (10.7-15.3); LYMPH % 23.7 % (8-40); MCH 28.2 pg (25.7-33.7); MCHC 33.5 g/dl (32.0-36.0); MEAN CELL VOLUME 84.1 fl (80-96); MEAN PLT VOLUME 7.5 fl (7.5-11.1); MONO % 11.3 % (3.8-10.2); NEUT % 63.8 % (42.8-82.8); PLATELET COUNT 244 10^3/uL (134-434); RDW 16.9 % (11.6-15.6); WHITE BLOOD COUNT 2.4 K/mm3 (4.0-10.0)
[2022-09-13 11:44] LABS: ALBUMIN 3.3 g/dl (3.4-5.0); BLOOD UREA NITROGEN 10.7 mg/dL (7-18); CALCIUM 9.1 mg/dL (8.5-10.1); MAGNESIUM 1.9 mg/dL (1.8-2.4)
[2022-09-13 11:47] LABS: BILIRUBIN,DIRECT 0.1 mg/dL (0.0-0.2); CREATININE 0.5 mg/dL (0.55-1.3)
[2022-09-13 11:50] LABS: BILIRUBIN,TOTAL 0.2 mg/dL (0.2-1); TOT PROT 7.2 g/dl (6.4-8.2)
[2022-09-13 16:38] VITALS: BP 104/47; PULSE 75; RESP 20; TEMP 98
[2022-09-14 08:11] LABS: FOLLICLE STIMULATING HORMONE 98.5 mIU/mL (.); LUTEINIZING HORMONE 57.6 mIU/mL (.)
== END 2022-09-13 11:50 | disposition home or self-care (01) ==
LOC: JONCCHEMO 10:43
PROVIDERS: ATTEND Internal Medicine Hematology & Oncology
DX: Z51.11 Encounter for antineoplastic chemotherapy (principal); C50.412 Malignant neoplasm of upper-outer quadrant of left female breast; C77.3 Secondary and unspecified malignant neoplasm of axilla and upper limb lymph nodes
CPT/HCPCS: 36415; 80048; 80076; 82306; 82378; 82670; 82728; 83001; 83002; 83540; 83550; 83735; 84703; 85025; 86300; 96372; J9202

== ENCOUNTER 2022-10-10 10:30 | Day surgery (SDC) | payer OTHER ==
[2022-10-10 11:35] LABS: BASO % 0.2 % (0-2.0); EOS % 1.4 % (0-4.5); HEMATOCRIT 36.1 % (32.4-45.2); HEMOGLOBIN 12.1 GM/dL (10.7-15.3); LYMPH % 20.7 % (8-40); MCH 28.7 pg (25.7-33.7); MCHC 33.6 g/dl (32.0-36.0); MEAN CELL VOLUME 85.6 fl (80-96); MEAN PLT VOLUME 8.3 fl (7.5-11.1); MONO % 9.5 % (3.8-10.2); NEUT % 68.2 % (42.8-82.8); PLATELET COUNT 251 10^3/uL (134-434); RBC 4.22 M/mm3 (3.60-5.2); RDW 14.9 % (11.6-15.6); WHITE BLOOD COUNT 3.4 K/mm3 (4.0-10.0)
[2022-10-10 13:01] LABS: CALCIUM 9.6 mg/dL (8.5-10.1); MAGNESIUM 1.9 mg/dL (1.8-2.4)
[2022-10-10 13:04] LABS: ALBUMIN 3.4 g/dl (3.4-5.0); BILIRUBIN,DIRECT 0.1 mg/dL (0.0-0.2)
[2022-10-10 13:05] LABS: CREATININE 0.6 mg/dL (0.55-1.3)
[2022-10-10 13:06] LABS: TOT PROT 7.4 g/dl (6.4-8.2)
[2022-10-10 13:07] LABS: BILIRUBIN,TOTAL 0.2 mg/dL (0.2-1)
[2022-10-10 13:13] LABS: BLOOD UREA NITROGEN 12.1 mg/dL (7-18)
[2022-10-10 15:46] VITALS: BP 118/61; PULSE 90; RESP 18; TEMP 98.3
[2022-10-11 08:11] LABS: CARCINOEMBRYONIC ANTIGEN 2.1 ng/mL (0.0-4.7); FOLLICLE STIMULATING HORMONE 7.7 mIU/mL (.); LUTEINIZING HORMONE 2.1 mIU/mL (.)
== END 2022-10-10 11:45 | disposition home or self-care (01) ==
LOC: JONCCHEMO 10:30
PROVIDERS: ATTEND Internal Medicine Hematology & Oncology
DX: Z51.11 Encounter for antineoplastic chemotherapy (principal); C50.412 Malignant neoplasm of upper-outer quadrant of left female breast; C77.3 Secondary and unspecified malignant neoplasm of axilla and upper limb lymph nodes
CPT/HCPCS: 36415; 80048; 80076; 82378; 82670; 83001; 83002; 83735; 84703; 85025; 86300; 96402; J9202

== ENCOUNTER 2022-11-07 11:25 | Day surgery (SDC) | payer OTHER ==
[2022-11-07 11:59] LABS: BASO % 0.6 % (0-2.0); HEMATOCRIT 36.5 % (32.4-45.2); HEMOGLOBIN 12.5 GM/dL (10.7-15.3); LYMPH % 28.3 % (8-40); MCH 28.7 pg (25.7-33.7); MCHC 34.2 g/dl (32.0-36.0); MEAN CELL VOLUME 83.8 fl (80-96); MEAN PLT VOLUME 9.2 fl (7.5-11.1); MONO % 10.9 % (3.8-10.2); NEUT % 59.2 % (42.8-82.8); PLATELET COUNT 238 10^3/uL (134-434); RBC 4.36 M/mm3 (3.60-5.2); RDW 14.1 % (11.6-15.6); WHITE BLOOD COUNT 2.7 K/mm3 (4.0-10.0)
[2022-11-07 12:00] VITALS: BP 142/68; PULSE 69; RESP 18; TEMP 98
[2022-11-07 12:33] LABS: CALCIUM 9.2 mg/dL (8.5-10.1)
[2022-11-07 12:34] LABS: ALBUMIN 3.4 g/dl (3.4-5.0); BLOOD UREA NITROGEN 12.8 mg/dL (7-18); MAGNESIUM 1.9 mg/dL (1.8-2.4)
[2022-11-07 12:36] LABS: BILIRUBIN,DIRECT 0.1 mg/dL (0.0-0.2); CREATININE 0.5 mg/dL (0.55-1.3)
[2022-11-07 12:39] LABS: BILIRUBIN,TOTAL 0.2 mg/dL (0.2-1); TOT PROT 7.5 g/dl (6.4-8.2)
[2022-11-08 08:06] LABS: LUTEINIZING HORMONE < 0.3 mIU/mL (.)
== END 2022-11-07 12:10 | disposition home or self-care (01) ==
LOC: JONCCHEMO 11:25
PROVIDERS: ATTEND Internal Medicine Hematology & Oncology
DX: Z51.11 Encounter for antineoplastic chemotherapy (principal); C50.412 Malignant neoplasm of upper-outer quadrant of left female breast; Z17.0 Estrogen receptor positive status [ER+]
CPT/HCPCS: 36415; 80048; 80076; 82670; 83001; 83002; 83735; 84703; 85025; 96402; J9202

== ENCOUNTER 2022-12-06 11:17 | Day surgery (SDC) | payer OTHER ==
[2022-12-06 12:24] LABS: BASO % 0.5 % (0-2.0); EOS % 1.1 % (0-4.5); HEMATOCRIT 35.9 % (32.4-45.2); HEMOGLOBIN 12.2 GM/dL (10.7-15.3); LYMPH % 23.3 % (8-40); MCH 28.7 pg (25.7-33.7); MCHC 34.1 g/dl (32.0-36.0); MEAN CELL VOLUME 84.1 fl (80-96); MEAN PLT VOLUME 9.1 fl (7.5-11.1); MONO % 8.8 % (3.8-10.2); NEUT % 66.3 % (42.8-82.8); PLATELET COUNT 246 10^3/uL (134-434); RBC 4.27 M/mm3 (3.60-5.2); RDW 14.1 % (11.6-15.6); WHITE BLOOD COUNT 3.2 K/mm3 (4.0-10.0)
[2022-12-06 13:24] LABS: POTASSIUM 4.3 mmol/L (3.5-5.1)
[2022-12-06 13:26] LABS: ALBUMIN 3.6 g/dl (3.4-5.0); BLOOD UREA NITROGEN 14.5 mg/dL (7-18); CALCIUM 9.4 mg/dL (8.5-10.1)
[2022-12-06 13:29] LABS: BILIRUBIN,DIRECT 0.1 mg/dL (0.0-0.2); CREATININE 0.7 mg/dL (0.55-1.3)
[2022-12-06 13:31] LABS: BILIRUBIN,TOTAL 0.2 mg/dL (0.2-1); TOT PROT 7.8 g/dl (6.4-8.2)
[2022-12-06 15:33] VITALS: BP 119/58; PULSE 69; RESP 19; TEMP 98.1
[2022-12-07 08:06] LABS: FOLLICLE STIMULATING HORMONE 7.1 mIU/mL (.); LUTEINIZING HORMONE < 0.3 mIU/mL (.)
== END 2022-12-06 13:15 | disposition home or self-care (01) ==
LOC: JONCCHEMO 11:17 → J7W 11:26 → JONCCHEMO 13:15
PROVIDERS: ATTEND Internal Medicine Hematology & Oncology
DX: Z51.11 Encounter for antineoplastic chemotherapy (principal); C50.412 Malignant neoplasm of upper-outer quadrant of left female breast; Z17.0 Estrogen receptor positive status [ER+]
CPT/HCPCS: 36415; 73030-TC-LT-FY; 73060-TC-LT-FY; 80048; 80076; 82306; 82378; 82670; 82977; 83001; 83002; 83735; 84703; 85025; 86300; 96402; J9202

== ENCOUNTER 2023-01-04 09:28 | Day surgery (SDC) | payer OTHER ==
[2023-01-04] MEDS ORDERED: LIDOCAINE HCL 1%, 10 MG/ML (20ML VIAL) ID ONE (10:00)
[2023-01-04] MEDS ORDERED: GOSERELIN ACETATE 3.6 MG IMPLANT SYRINGE SQ ONE (10:00)
[2023-01-04 10:21] LABS: BASO % 0.6 % (0-2.0); EOS % 1.8 % (0-4.5); HEMATOCRIT 37.4 % (32.4-45.2); HEMOGLOBIN 12.3 GM/dL (10.7-15.3); LYMPH % 34.5 % (8-40); MCH 27.8 pg (25.7-33.7); MCHC 32.8 g/dl (32.0-36.0); MEAN CELL VOLUME 84.8 fl (80-96); MEAN PLT VOLUME 9.3 fl (7.5-11.1); MONO % 10.8 % (3.8-10.2); NEUT % 52.3 % (42.8-82.8); PLATELET COUNT 237 10^3/uL (134-434); RBC 4.41 M/mm3 (3.60-5.2); RDW 14.5 % (11.6-15.6); WHITE BLOOD COUNT 2.3 K/mm3 (4.0-10.0)
[2023-01-04 10:45] LABS: ALBUMIN 3.7 g/dl (3.4-5.0); CALCIUM 9.3 mg/dL (8.5-10.1)
[2023-01-04 10:48] LABS: BILIRUBIN,DIRECT 0.1 mg/dL (0.0-0.2); CREATININE 0.5 mg/dL (0.55-1.3)
[2023-01-04 10:50] LABS: BILIRUBIN,TOTAL 0.3 mg/dL (0.2-1); TOT PROT 7.5 g/dl (6.4-8.2)
[2023-01-04 17:40] VITALS: BP 155/68; PULSE 75; RESP 20; TEMP 98.3
[2023-01-05 08:07] LABS: FOLLICLE STIMULATING HORMONE 8.3 mIU/mL (.); LUTEINIZING HORMONE 0.5 mIU/mL (.)
== END 2023-01-04 10:10 | disposition home or self-care (01) ==
LOC: JONCCHEMO 09:28 → J7W 09:33 → JONCCHEMO 10:10
PROVIDERS: ATTEND Internal Medicine Hematology & Oncology
DX: Z51.11 Encounter for antineoplastic chemotherapy (principal); C50.919 Malignant neoplasm of unspecified site of unspecified female breast
CPT/HCPCS: 36415; 80048; 80076; 82306; 82378; 82670; 83001; 83002; 83735; 84703; 85025; 86300; 96402; J9202

== ENCOUNTER 2023-01-31 11:42 | Day surgery (SDC) | payer OTHER ==
[2023-01-31 12:25] LABS: BASO % 0.8 % (0-2.0); EOS % 1.6 % (0-4.5); HEMATOCRIT 37.2 % (32.4-45.2); HEMOGLOBIN 12.3 GM/dL (10.7-15.3); LYMPH % 28.9 % (8-40); MCH 27.5 pg (25.7-33.7); MCHC 33.1 g/dl (32.0-36.0); MEAN PLT VOLUME 8.5 fl (7.5-11.1); MONO % 11.9 % (3.8-10.2); NEUT % 56.8 % (42.8-82.8); PLATELET COUNT 242 10^3/uL (134-434); RBC 4.49 M/mm3 (3.60-5.2); RDW 14.6 % (11.6-15.6); WHITE BLOOD COUNT 2.7 K/mm3 (4.0-10.0)
[2023-01-31 13:40] LABS: CALCIUM 9.7 mg/dL (8.5-10.1)
[2023-01-31 13:41] LABS: ALBUMIN 3.3 g/dl (3.4-5.0); BLOOD UREA NITROGEN 12.2 mg/dL (7-18)
[2023-01-31 13:43] LABS: BILIRUBIN,DIRECT 0.1 mg/dL (0.0-0.2)
[2023-01-31 13:44] LABS: CREATININE 0.5 mg/dL (0.55-1.3)
[2023-01-31 13:45] LABS: TOT PROT 7.2 g/dl (6.4-8.2)
[2023-01-31 13:46] LABS: BILIRUBIN,TOTAL 0.2 mg/dL (0.2-1)
[2023-01-31 17:56] VITALS: BP 126/94; PULSE 69; RESP 18; TEMP 98.2
[2023-02-01 10:09] LABS: LUTEINIZING HORMONE 0.4 mIU/mL (.)
== END 2023-01-31 13:00 | disposition home or self-care (01) ==
LOC: JONCCHEMO 11:42 → J7W 11:43 → JONCCHEMO 13:00
PROVIDERS: ATTEND Internal Medicine Hematology & Oncology
DX: Z51.11 Encounter for antineoplastic chemotherapy (principal); C50.919 Malignant neoplasm of unspecified site of unspecified female breast
CPT/HCPCS: 36415; 80048; 80076; 82306; 82670; 83001; 83002; 83735; 84703; 85025; 96402; J9202

== ENCOUNTER 2023-02-19 06:09 | Day surgery (SDC) | payer OTHER ==
[2023-02-14 10:55] VITALS: BMI 40.5
[2023-02-19] MEDS ORDERED: VERAPAMIL HCL 5 MG/2 ML VIAL IVPUSH ONE (07:10)
[2023-02-19] MEDS ORDERED: PROPOFOL 20 ML ONE (07:10)
[2023-02-19] MEDS ORDERED: ROCURONIUM BROMIDE 50 MG/5 ML SYRINGE ONE (07:10)
[2023-02-19] MEDS ORDERED: MIDAZOLAM HCL 2 MG/2 ML SINGLE DOSE VIAL ONE (07:11)
[2023-02-19] MEDS ORDERED: LIDOCAINE HCL/PF 2% SDV 5ML VIAL ONE (07:23)
[2023-02-19] MEDS ORDERED: ceFAZolin SODIUM 1 GM VIAL ONE ×2 (07:23→07:25)
[2023-02-19] MEDS ORDERED: ONDANSETRON 4 MG/2 ML VIAL ONE (07:23)
[2023-02-19] MEDS ORDERED: DEXAMETHASONE SOD PHOSPHATE 4 MG/1 ML VIAL ONE (07:23)
[2023-02-19] MEDS ORDERED: VANCOMYCIN 1,000 MG VIAL (RESTRICTED TO ID ONLY) ONE (07:25)
[2023-02-19] MEDS ORDERED: GENTAMICIN SO4 80 MG/2 ML VIAL ONE (07:25)
[2023-02-19] MEDS ORDERED: BUPIVACAINE HCL/PF 2.5 MG/ML - 30 ML VIAL IJ ONE (07:25)
[2023-02-19] MEDS ORDERED: BUPIVACAINE HCL/PF 0.25% (2.5MG/ML) 10 ML VIAL ONE (07:25)
[2023-02-19] MEDS ORDERED: NITROGLYCERIN 2% OINTMENT - 1GM PACKET TD ONE (11:37)
[2023-02-19] MEDS ORDERED: ONDANSETRON 4 MG/2 ML VIAL IVPUSH PRN (12:15)
[2023-02-19] MEDS ORDERED: oxyCODONE HCL 5 MG TABLET PO PRN ×3 (12:15→12:18)
[2023-02-19] MEDS ORDERED: LACTATED RINGERS SOLUTION 1,000 ML IV SCH ×2 (12:15→12:30)
[2023-02-19] MEDS ORDERED: ONDANSETRON 4 MG/2 ML VIAL IVPB PRN (12:18)
[2023-02-19] MEDS ORDERED: ACETAMINOPHEN 1000 MG/100 ML BAG IVPB ONE (12:42)
[2023-02-19] MEDS ORDERED: FENTANYL CITRATE/PF 50 MCG/ML VIAL ONE ×2 (12:44→13:02)
[2023-02-19 15:09] VITALS: BP 111/59; PULSE 89; RESP 18; TEMP 98.6
== END 2023-02-19 14:55 | disposition home or self-care (01) ==
LOC: FASU 06:09
PROVIDERS: ATTEND Plastic Surgery
PROC: 0HBT0ZZ Excision of Right Breast, Open Approach (ICD-10-PCS; 2023-02-19)
PROC: 0HPU0NZ Removal of Tissue Expander from Left Breast, Open Approach (ICD-10-PCS; principal; 2023-02-19 09:03)
PROC: 0HRU0JZ Replacement of Left Breast with Synthetic Substitute, Open Approach (ICD-10-PCS; 2023-02-19 09:03)
DX: C50.912 Malignant neoplasm of unspecified site of left female breast (principal)
CPT/HCPCS: 11970; 19318; 19370; L8600; 88305-TC; 94760

== ENCOUNTER 2023-02-28 11:53 | Day surgery (SDC) | payer OTHER ==
[2023-02-28 13:23] LABS: BASO % 0.6 % (0-2.0); EOS % 0.1 % (0-4.5); HEMOGLOBIN 10.9 GM/dL (10.7-15.3); LYMPH % 13.2 % (8-40); MCH 28.3 pg (25.7-33.7); MEAN CELL VOLUME 83.1 fl (80-96); MEAN PLT VOLUME 8.2 fl (7.5-11.1); MONO % 5.4 % (3.8-10.2); NEUT % 80.7 % (42.8-82.8); PLATELET COUNT 341 10^3/uL (134-434); RBC 3.85 M/mm3 (3.60-5.2); RDW 14.3 % (11.6-15.6); WHITE BLOOD COUNT 6.8 K/mm3 (4.0-10.0)
[2023-02-28 13:40] LABS: POTASSIUM 3.9 mmol/L (3.5-5.1)
[2023-02-28 13:41] LABS: CALCIUM 9.1 mg/dL (8.5-10.1)
[2023-02-28 13:42] LABS: ALBUMIN 3.2 g/dl (3.4-5.0); MAGNESIUM 1.9 mg/dL (1.8-2.4)
[2023-02-28 13:44] LABS: BILIRUBIN,DIRECT 0.1 mg/dL (0.0-0.2)
[2023-02-28 13:45] LABS: CREATININE 0.5 mg/dL (0.55-1.3)
[2023-02-28 13:46] LABS: BILIRUBIN,TOTAL 0.3 mg/dL (0.2-1); TOT PROT 7.1 g/dl (6.4-8.2)
[2023-02-28 14:59] VITALS: BP 146/77; PULSE 77; RESP 18; TEMP 98.3
[2023-03-01 10:07] LABS: FOLLICLE STIMULATING HORMONE 9.2 mIU/mL (.); LUTEINIZING HORMONE < 0.3 mIU/mL (.)
== END 2023-02-28 12:35 | disposition home or self-care (01) ==
LOC: JONCCHEMO 11:53 → J7W 11:56 → JONCCHEMO 12:35
PROVIDERS: ATTEND Internal Medicine Hematology & Oncology
DX: Z51.11 Encounter for antineoplastic chemotherapy (principal); C50.412 Malignant neoplasm of upper-outer quadrant of left female breast; Z17.0 Estrogen receptor positive status [ER+]
CPT/HCPCS: 36415; 80048; 80076; 82306; 82670; 83001; 83002; 83735; 84703; 85025; 96401; J9202

== ENCOUNTER 2023-03-29 11:58 | Day surgery (SDC) | payer OTHER ==
[2023-03-29 12:20] LABS: BASO % 1.3 % (0-2.0); HEMATOCRIT 37.7 % (32.4-45.2); HEMOGLOBIN 12.1 GM/dL (10.7-15.3); LYMPH % 31.8 % (8-40); MCH 27.3 pg (25.7-33.7); MCHC 32.2 g/dl (32.0-36.0); MEAN PLT VOLUME 8.9 fl (7.5-11.1); MONO % 8.5 % (3.8-10.2); NEUT % 57.4 % (42.8-82.8); PLATELET COUNT 300 10^3/uL (134-434); RBC 4.43 M/mm3 (3.60-5.2); RDW 14.4 % (11.6-15.6); WHITE BLOOD COUNT 2.9 K/mm3 (4.0-10.0)
[2023-03-29 12:43] LABS: ALBUMIN 3.7 g/dl (3.4-5.0); BLOOD UREA NITROGEN 8.6 mg/dL (7-18); CALCIUM 9.4 mg/dL (8.5-10.1); MAGNESIUM 1.8 mg/dL (1.8-2.4)
[2023-03-29 12:46] LABS: BILIRUBIN,DIRECT 0.1 mg/dL (0.0-0.2); CREATININE 0.7 mg/dL (0.55-1.3)
[2023-03-29 12:48] LABS: BILIRUBIN,TOTAL 0.3 mg/dL (0.2-1); TOT PROT 7.6 g/dl (6.4-8.2)
[2023-03-29 18:24] VITALS: BP 148/68; PULSE 73; RESP 20; TEMP 98.1
[2023-03-30 18:07] LABS: FOLLICLE STIMULATING HORMONE 11.9 mIU/mL (.); LUTEINIZING HORMONE 0.4 mIU/mL (.)
== END 2023-03-29 13:45 | disposition home or self-care (01) ==
LOC: JONCCHEMO 11:58 → J7W 12:00 → JONCCHEMO 13:45
PROVIDERS: ATTEND Internal Medicine Hematology & Oncology
DX: Z51.11 Encounter for antineoplastic chemotherapy (principal); C50.412 Malignant neoplasm of upper-outer quadrant of left female breast
CPT/HCPCS: 36415; 80048; 80076; 82306; 82670; 83001; 83002; 83735; 84703; 85025; 93971; 96402; J9202

== ENCOUNTER 2023-05-24 10:33 | Day surgery (SDC) | payer OTHER ==
[2023-05-24 11:15] LABS: BASO % 0.8 % (0-2.0); EOS % 1.1 % (0-4.5); HEMATOCRIT 38.8 % (32.4-45.2); HEMOGLOBIN 12.4 GM/dL (10.7-15.3); LYMPH % 36.3 % (8-40); MCH 26.9 pg (25.7-33.7); MCHC 32.1 g/dl (32.0-36.0); MEAN CELL VOLUME 83.8 fl (80-96); MEAN PLT VOLUME 9.1 fl (7.5-11.1); MONO % 11.4 % (3.8-10.2); NEUT % 50.4 % (42.8-82.8); PLATELET COUNT 248 10^3/uL (134-434); RBC 4.63 M/mm3 (3.60-5.2); RDW 14.5 % (11.6-15.6); WHITE BLOOD COUNT 2.8 K/mm3 (4.0-10.0)
[2023-05-24 11:40] LABS: POTASSIUM 3.6 mmol/L (3.5-5.1)
[2023-05-24 11:42] LABS: CALCIUM 8.7 mg/dL (8.5-10.1)
[2023-05-24 11:43] LABS: ALBUMIN 3.5 g/dl (3.4-5.0); MAGNESIUM 1.9 mg/dL (1.8-2.4)
[2023-05-24 11:44] LABS: BLOOD UREA NITROGEN 10.9 mg/dL (7-18)
[2023-05-24 11:45] LABS: BILIRUBIN,DIRECT 0.1 mg/dL (0.0-0.2)
[2023-05-24 11:46] LABS: CREATININE 0.6 mg/dL (0.55-1.3)
[2023-05-24 11:47] LABS: BILIRUBIN,TOTAL 0.2 mg/dL (0.2-1); TOT PROT 7.4 g/dl (6.4-8.2)
[2023-05-24 15:18] VITALS: BP 138/48; PULSE 20; RESP 70; TEMP 98.2
[2023-05-25 08:11] LABS: FOLLICLE STIMULATING HORMONE 15.2 mIU/mL (.); LUTEINIZING HORMONE < 0.3 mIU/mL (.)
== END 2023-05-24 11:30 | disposition home or self-care (01) ==
LOC: JONCCHEMO 10:33 → J7W 10:35 → JONCCHEMO 11:30
PROVIDERS: ATTEND Internal Medicine Hematology & Oncology
DX: Z51.11 Encounter for antineoplastic chemotherapy (principal); C50.919 Malignant neoplasm of unspecified site of unspecified female breast
CPT/HCPCS: 36415; 80048; 80076; 82306; 82670; 83001; 83002; 83735; 84703; 85025; 96402; J9202

== ENCOUNTER 2023-06-28 13:58 | Day surgery (SDC) | payer OTHER ==
[2023-06-28 15:03] LABS: BASO % 0.5 % (0-2.0); EOS % 0.6 % (0-4.5); HEMATOCRIT 37.5 % (32.4-45.2); HEMOGLOBIN 12.6 GM/dL (10.7-15.3); LYMPH % 34.1 % (8-40); MCH 27.4 pg (25.7-33.7); MCHC 33.8 g/dl (32.0-36.0); MEAN CELL VOLUME 81.1 fl (80-96); MEAN PLT VOLUME 9.2 fl (7.5-11.1); MONO % 9.5 % (3.8-10.2); NEUT % 55.3 % (42.8-82.8); PLATELET COUNT 226 10^3/uL (134-434); RBC 4.62 M/mm3 (3.60-5.2); RDW 15.5 % (11.6-15.6); WHITE BLOOD COUNT 3.3 K/mm3 (4.0-10.0)
[2023-06-28 15:46] LABS: POTASSIUM 3.7 mmol/L (3.5-5.1)
[2023-06-28 15:48] LABS: ALBUMIN 3.6 g/dl (3.4-5.0); CALCIUM 9.5 mg/dL (8.5-10.1)
[2023-06-28 15:49] LABS: BLOOD UREA NITROGEN 9.6 mg/dL (7-18)
[2023-06-28 15:51] LABS: BILIRUBIN,DIRECT 0.1 mg/dL (0.0-0.2)
[2023-06-28 15:52] LABS: CREATININE 0.6 mg/dL (0.55-1.3)
[2023-06-28 15:53] LABS: BILIRUBIN,TOTAL 0.3 mg/dL (0.2-1); TOT PROT 7.4 g/dl (6.4-8.2)
[2023-06-28 16:24] VITALS: BP 114/74; PULSE 68; RESP 18; TEMP 98
[2023-06-30 08:10] LABS: FOLLICLE STIMULATING HORMONE 13.6 mIU/mL (.); LUTEINIZING HORMONE < 0.3 mIU/mL (.)
== END 2023-06-28 15:00 | disposition home or self-care (01) ==
LOC: JONCCHEMO 13:58
PROVIDERS: ATTEND Internal Medicine Hematology & Oncology
DX: Z51.11 Encounter for antineoplastic chemotherapy (principal); C50.919 Malignant neoplasm of unspecified site of unspecified female breast
CPT/HCPCS: 36415; 80048; 80076; 82306; 82670; 83001; 83002; 83735; 84703; 85025; 96402; J9202

== ENCOUNTER 2023-08-09 12:42 | Day surgery (SDC) | payer OTHER ==
[2023-08-09 13:25] LABS: BASO % 0.5 % (0-2.0); EOS % 0.9 % (0-4.5); HEMATOCRIT 39.4 % (32.4-45.2); HEMOGLOBIN 12.8 GM/dL (10.7-15.3); LYMPH % 33.4 % (8-40); MCHC 32.5 g/dl (32.0-36.0); MEAN CELL VOLUME 86.1 fl (80-96); MEAN PLT VOLUME 9.1 fl (7.5-11.1); MONO % 12.7 % (3.8-10.2); NEUT % 52.5 % (42.8-82.8); PLATELET COUNT 246 10^3/uL (134-434); RBC 4.58 M/mm3 (3.60-5.2); WHITE BLOOD COUNT 2.9 K/mm3 (4.0-10.0)
[2023-08-09 13:41] LABS: POTASSIUM 3.9 mmol/L (3.5-5.1)
[2023-08-09 13:43] LABS: CALCIUM 9.5 mg/dL (8.5-10.1)
[2023-08-09 13:44] LABS: ALBUMIN 3.5 g/dl (3.4-5.0); MAGNESIUM 1.9 mg/dL (1.8-2.4)
[2023-08-09 13:47] LABS: BILIRUBIN,DIRECT 0.1 mg/dL (0.0-0.2); CREATININE 0.6 mg/dL (0.55-1.3)
[2023-08-09 13:48] LABS: BILIRUBIN,TOTAL 0.1 mg/dL (0.2-1)
[2023-08-09 13:49] LABS: TOT PROT 7.4 g/dl (6.4-8.2)
[2023-08-09 16:38] VITALS: BP 100/57; PULSE 76; RESP 20; TEMP 98.2
[2023-08-09] MEDS ORDERED: PORTA CATH FLUSH 10 ML IVPUSH PRN (16:38)
[2023-08-10 08:06] LABS: FOLLICLE STIMULATING HORMONE 13.5 mIU/mL (.); LUTEINIZING HORMONE < 0.3 mIU/mL (.)
== END 2023-08-09 13:20 | disposition home or self-care (01) ==
LOC: JONCCHEMO 12:42 → J7W 12:43 → JONCCHEMO 13:20
PROVIDERS: ATTEND Internal Medicine Hematology & Oncology
DX: Z51.11 Encounter for antineoplastic chemotherapy (principal); C50.919 Malignant neoplasm of unspecified site of unspecified female breast
CPT/HCPCS: 36415; 80048; 80076; 82306; 82670; 83001; 83002; 83735; 85025; 96402; J9202

== ENCOUNTER 2023-09-06 11:46 | Day surgery (SDC) | payer OTHER ==
[2023-09-06 12:14] LABS: BASO % 0.9 % (0-2.0); EOS % 1.1 % (0-4.5); HEMATOCRIT 37.7 % (32.4-45.2); HEMOGLOBIN 12.7 GM/dL (10.7-15.3); LYMPH % 28.6 % (8-40); MCH 28.7 pg (25.7-33.7); MCHC 33.8 g/dl (32.0-36.0); MEAN CELL VOLUME 85.2 fl (80-96); MEAN PLT VOLUME 8.7 fl (7.5-11.1); MONO % 9.2 % (3.8-10.2); NEUT % 60.2 % (42.8-82.8); PLATELET COUNT 254 10^3/uL (134-434); RBC 4.42 M/mm3 (3.60-5.2); RDW 14.4 % (11.6-15.6); WHITE BLOOD COUNT 4.1 K/mm3 (4.0-10.0)
[2023-09-06 12:35] LABS: POTASSIUM 3.8 mmol/L (3.5-5.1)
[2023-09-06] MEDS: GOSERELIN ACETATE 3.6 MG IMPLANT SYRINGE SQ ONE (12:35)
[2023-09-06] MEDS: LIDOCAINE HCL 1%, 10 MG/ML (20ML VIAL) ID ONE (12:35)
[2023-09-06 12:37] LABS: CALCIUM 9.2 mg/dL (8.5-10.1)
[2023-09-06 12:38] LABS: ALBUMIN 3.6 g/dl (3.4-5.0); BLOOD UREA NITROGEN 9.2 mg/dL (7-18); MAGNESIUM 1.9 mg/dL (1.8-2.4)
[2023-09-06 12:41] LABS: BILIRUBIN,DIRECT 0.1 mg/dL (0.0-0.2); CREATININE 0.5 mg/dL (0.55-1.3)
[2023-09-06 12:42] LABS: BILIRUBIN,TOTAL 0.3 mg/dL (0.2-1); TOT PROT 7.6 g/dl (6.4-8.2)
[2023-09-06 18:09] VITALS: BP 131/63; PULSE 65; RESP 18; TEMP 97.9
[2023-09-08 08:06] LABS: FOLLICLE STIMULATING HORMONE 12.7 mIU/mL (.); LUTEINIZING HORMONE < 0.3 mIU/mL (.)
== END 2023-09-06 12:45 | disposition home or self-care (01) ==
LOC: JONCCHEMO 11:46 → J7W 11:48 → JONCCHEMO 12:45
PROVIDERS: ATTEND Internal Medicine Hematology & Oncology
DX: Z51.11 Encounter for antineoplastic chemotherapy (principal); C50.919 Malignant neoplasm of unspecified site of unspecified female breast
CPT/HCPCS: 36415; 80048; 80076; 82306; 82670; 83001; 83002; 83735; 84703; 85025; 96402; J9202

== ENCOUNTER 2023-10-04 12:04 | Day surgery (SDC) | payer OTHER ==
[2023-10-04] MEDS: LIDOCAINE HCL 1%, 10 MG/ML (20ML VIAL) ID ONE (12:25)
[2023-10-04] MEDS: GOSERELIN ACETATE 3.6 MG IMPLANT SYRINGE SQ ONE (12:25)
[2023-10-04 12:29] VITALS: BP 116/86; RESP 18; TEMP 98.2
[2023-10-04 12:42] LABS: BASO % 0.7 % (0-2.0); EOS % 0.6 % (0-4.5); HEMATOCRIT 37.9 % (32.4-45.2); LYMPH % 29.4 % (8-40); MCH 29.1 pg (25.7-33.7); MCHC 34.4 g/dl (32.0-36.0); MEAN CELL VOLUME 84.5 fl (80-96); MEAN PLT VOLUME 9.1 fl (7.5-11.1); MONO % 8.3 % (3.8-10.2); PLATELET COUNT 271 10^3/uL (134-434); RBC 4.48 M/mm3 (3.60-5.2); RDW 13.8 % (11.6-15.6); WHITE BLOOD COUNT 3.8 K/mm3 (4.0-10.0)
[2023-10-04 12:44] VITALS: PULSE 74
[2023-10-04 12:56] LABS: POTASSIUM 3.7 mmol/L (3.5-5.1)
[2023-10-04 12:58] LABS: BLOOD UREA NITROGEN 7.4 mg/dL (7-18); CALCIUM 9.7 mg/dL (8.5-10.1); MAGNESIUM 2.1 mg/dL (1.8-2.4)
[2023-10-04 12:59] LABS: ALBUMIN 3.8 g/dl (3.4-5.0)
[2023-10-04 13:01] LABS: BILIRUBIN,DIRECT 0.1 mg/dL (0.0-0.2); CREATININE 0.6 mg/dL (0.55-1.3)
[2023-10-04 13:03] LABS: BILIRUBIN,TOTAL 0.3 mg/dL (0.2-1)
[2023-10-05 08:15] LABS: FOLLICLE STIMULATING HORMONE 17.4 mIU/mL (.); LUTEINIZING HORMONE < 0.3 mIU/mL (.)
== END 2023-10-04 12:35 | disposition home or self-care (01) ==
LOC: JONCCHEMO 12:04 → J7W 12:05 → JONCCHEMO 12:35
PROVIDERS: ATTEND Internal Medicine Hematology & Oncology
DX: Z51.11 Encounter for antineoplastic chemotherapy (principal); C50.919 Malignant neoplasm of unspecified site of unspecified female breast
CPT/HCPCS: 36415; 80048; 80076; 82306; 82670; 83001; 83002; 83735; 84703; 85025; 96402; J9202

== ENCOUNTER 2023-11-01 11:39 | Day surgery (SDC) | payer OTHER ==
[2023-11-01] MEDS: GOSERELIN ACETATE 3.6 MG IMPLANT SYRINGE SQ ONE (12:14)
[2023-11-01] MEDS: LIDOCAINE HCL 1%, 10 MG/ML (20ML VIAL) ID ONE (12:14)
[2023-11-01 12:44] LABS: BASO % 0.7 % (0-2.0); EOS % 0.5 % (0-4.5); HEMATOCRIT 39.7 % (32.4-45.2); LYMPH % 31.8 % (8-40); MCH 27.8 pg (25.7-33.7); MCHC 32.6 g/dl (32.0-36.0); MEAN CELL VOLUME 85.3 fl (80-96); PLATELET COUNT 268 10^3/uL (134-434); RBC 4.66 M/mm3 (3.60-5.2); RDW 13.6 % (11.6-15.6); WHITE BLOOD COUNT 3.9 K/mm3 (4.0-10.0)
[2023-11-01 13:02] LABS: BLOOD UREA NITROGEN 8.5 mg/dL (7-18); CALCIUM 10.1 mg/dL (8.5-10.1)
[2023-11-01 13:03] LABS: ALBUMIN 3.6 g/dl (3.4-5.0); MAGNESIUM 2.1 mg/dL (1.8-2.4)
[2023-11-01 13:05] LABS: BILIRUBIN,DIRECT 0.1 mg/dL (0.0-0.2); CREATININE 0.5 mg/dL (0.55-1.3)
[2023-11-01 13:07] LABS: BILIRUBIN,TOTAL 0.4 mg/dL (0.2-1); TOT PROT 7.6 g/dl (6.4-8.2)
[2023-11-01 13:28] LABS: POTASSIUM 3.9 mmol/L (3.5-5.1)
[2023-11-01 17:31] VITALS: BP 130/60; PULSE 67; RESP 20; TEMP 97.6
[2023-11-02 08:11] LABS: FOLLICLE STIMULATING HORMONE 15.9 mIU/mL (.); LUTEINIZING HORMONE < 0.3 mIU/mL (.)
== END 2023-11-01 12:25 | disposition home or self-care (01) ==
LOC: JONCCHEMO 11:39 → J7W 11:40 → JONCCHEMO 12:25
PROVIDERS: ATTEND Internal Medicine Hematology & Oncology
DX: Z51.11 Encounter for antineoplastic chemotherapy (principal); C50.919 Malignant neoplasm of unspecified site of unspecified female breast
CPT/HCPCS: 36415; 80048; 80076; 82306; 82670; 83001; 83002; 83735; 84703; 85025; 96402; J9202

== ENCOUNTER 2023-11-29 11:59 | Day surgery (SDC) | payer OTHER ==
[~2023-11-29 11:59] MED LIST changes: -GOSERELIN ACETATE 3.6 MG IMPLANT SYRINGE SQ ONE
[2023-11-29 12:38] LABS: BASO % 0.7 % (0-2.0); EOS % 3.5 % (0-4.5); HEMOGLOBIN 12.7 GM/dL (10.7-15.3); LYMPH % 33.7 % (8-40); MCHC 33.5 g/dl (32.0-36.0); MEAN CELL VOLUME 83.8 fl (80-96); MEAN PLT VOLUME 8.7 fl (7.5-11.1); MONO % 9.8 % (3.8-10.2); NEUT % 52.3 % (42.8-82.8); PLATELET COUNT 260 10^3/uL (134-434); RBC 4.54 M/mm3 (3.60-5.2); WHITE BLOOD COUNT 3.3 K/mm3 (4.0-10.0)
[2023-11-29 13:07] LABS: ALBUMIN 3.5 g/dl (3.4-5.0); BLOOD UREA NITROGEN 9.5 mg/dL (7-18); CALCIUM 9.4 mg/dL (8.5-10.1); CO2 28 mmol/L (21-32); GLUCOSE,RANDOM 113 mg/dL (74-106); MAGNESIUM 2.1 mg/dL (1.8-2.4)
[2023-11-29 13:10] LABS: BILIRUBIN,DIRECT 0.1 mg/dL (0.0-0.2); CREATININE 0.6 mg/dL (0.55-1.3); SGOT/AST 19 U/L (15-37); SGPT/ALT 26 U/L (13-61)
[2023-11-29] MEDS: GOSERELIN ACETATE 3.6 MG IMPLANT SYRINGE SQ ONE (13:11)
[2023-11-29 13:12] LABS: BILIRUBIN,TOTAL 0.4 mg/dL (0.2-1); TOT PROT 7.2 g/dl (6.4-8.2)
[2023-11-29 13:13] LABS: ALK PHOS 210 U/L (45-117)
[2023-11-29 13:31] LABS: ANION GAP 0 mmol/L (4-13); CHLORIDE 108 mmol/L (98-107); POTASSIUM 3.5 mmol/L (3.5-5.1); SODIUM 136 mmol/L (136-145)
[2023-11-29 16:28] VITALS: BP 133/65; PULSE 71; RESP 20; TEMP 98.6
[2023-11-30 08:10] LABS: FOLLICLE STIMULATING HORMONE 12.1 mIU/mL (.); LUTEINIZING HORMONE 0.4 mIU/mL (.)
== END 2023-11-29 13:25 | disposition home or self-care (01) ==
LOC: JONCCHEMO 11:59 → J7W 12:02 → JONCCHEMO 13:25
PROVIDERS: ATTEND Internal Medicine Hematology & Oncology
DX: Z51.11 Encounter for antineoplastic chemotherapy (principal); C50.919 Malignant neoplasm of unspecified site of unspecified female breast
CPT/HCPCS: 36415; 80048; 80076; 82306; 82670; 83001; 83002; 83735; 84703; 85025; 96402; J9202

== ENCOUNTER 2023-12-27 11:52 | Day surgery (SDC) | payer OTHER ==
[2023-12-27 12:18] LABS: BASO % 0.9 % (0-2.0); EOS % 1.1 % (0-4.5); HEMATOCRIT 37.9 % (32.4-45.2); HEMOGLOBIN 12.9 GM/dL (10.7-15.3); LYMPH % 37.6 % (8-40); MCH 28.4 pg (25.7-33.7); MCHC 34.1 g/dl (32.0-36.0); MEAN CELL VOLUME 83.2 fl (80-96); MEAN PLT VOLUME 8.4 fl (7.5-11.1); MONO % 10.1 % (3.8-10.2); NEUT % 50.3 % (42.8-82.8); PLATELET COUNT 272 10^3/uL (134-434); RBC 4.56 M/mm3 (3.60-5.2); RDW 13.9 % (11.6-15.6); WHITE BLOOD COUNT 2.7 K/mm3 (4.0-10.0)
[2023-12-27 12:42] VITALS: BP 136/63; PULSE 75; RESP 18; TEMP 98.4
[2023-12-27] MEDS: GOSERELIN ACETATE 3.6 MG IMPLANT SYRINGE SQ ONE (12:48)
[2023-12-27] MEDS: LIDOCAINE HCL 1%, 10 MG/ML (20ML VIAL) ID ONE (12:48)
[2023-12-27 12:49] LABS: POTASSIUM 3.7 mmol/L (3.5-5.1)
[2023-12-27 12:51] LABS: CALCIUM 9.5 mg/dL (8.5-10.1)
[2023-12-27 12:53] LABS: ALBUMIN 3.7 g/dl (3.4-5.0); BLOOD UREA NITROGEN 8.6 mg/dL (7-18); MAGNESIUM 1.9 mg/dL (1.8-2.4)
[2023-12-27 12:55] LABS: BILIRUBIN,DIRECT 0.1 mg/dL (0.0-0.2); CREATININE 0.6 mg/dL (0.55-1.3)
[2023-12-27 12:57] LABS: BILIRUBIN,TOTAL 0.3 mg/dL (0.2-1); TOT PROT 7.7 g/dl (6.4-8.2)
[2023-12-28 08:11] LABS: FOLLICLE STIMULATING HORMONE 13.2 mIU/mL (.); LUTEINIZING HORMONE < 0.3 mIU/mL (.)
== END 2023-12-27 13:05 | disposition home or self-care (01) ==
LOC: J7W 11:52 → JONCCHEMO 11:52
PROVIDERS: ATTEND Internal Medicine Hematology & Oncology
DX: Z51.11 Encounter for antineoplastic chemotherapy (principal); C50.919 Malignant neoplasm of unspecified site of unspecified female breast
CPT/HCPCS: 36415; 80048; 80076; 82306; 82670; 83001; 83002; 83735; 84703; 85025; 96402; J9202

== ENCOUNTER 2024-01-24 14:42 | Day surgery (SDC) | payer OTHER ==
[2024-01-24] MEDS: GOSERELIN ACETATE 3.6 MG IMPLANT SYRINGE SQ ONE (15:04)
[2024-01-24] MEDS: LIDOCAINE HCL 1%, 10 MG/ML (20ML VIAL) ID ONE (15:04)
[2024-01-24 15:19] LABS: BASO % 0.4 % (0-2.0); EOS % 0.5 % (0-4.5); HEMATOCRIT 37.9 % (32.4-45.2); HEMOGLOBIN 12.8 GM/dL (10.7-15.3); LYMPH % 35.8 % (8-40); MCH 28.3 pg (25.7-33.7); MCHC 33.7 g/dl (32.0-36.0); MEAN CELL VOLUME 83.8 fl (80-96); MEAN PLT VOLUME 8.8 fl (7.5-11.1); MONO % 8.6 % (3.8-10.2); NEUT % 54.7 % (42.8-82.8); PLATELET COUNT 263 10^3/uL (134-434); RBC 4.52 M/mm3 (3.60-5.2); RDW 14.2 % (11.6-15.6); WHITE BLOOD COUNT 3.6 K/mm3 (4.0-10.0)
[2024-01-24 15:41] LABS: CHLORIDE 109 mmol/L (98-107); POTASSIUM 3.7 mmol/L (3.5-5.1); SODIUM 143 mmol/L (136-145)
[2024-01-24 15:45] LABS: ALBUMIN 3.5 g/dl (3.4-5.0); ANION GAP 7 mmol/L (4-13); BLOOD UREA NITROGEN 8.2 mg/dL (7-18); CALCIUM 9.3 mg/dL (8.5-10.1); CO2 27 mmol/L (21-32); GLUCOSE,RANDOM 84 mg/dL (74-106); MAGNESIUM 1.9 mg/dL (1.8-2.4)
[2024-01-24 15:48] LABS: BILIRUBIN,DIRECT 0.1 mg/dL (0.0-0.2); CREATININE 0.7 mg/dL (0.55-1.3); SGOT/AST 16 U/L (15-37); SGPT/ALT 20 U/L (13-61)
[2024-01-24 15:50] VITALS: BP 132/42; PULSE 66; RESP 20; TEMP 97.6
[2024-01-24 15:50] LABS: BILIRUBIN,TOTAL 0.2 mg/dL (0.2-1); TOT PROT 7.6 g/dl (6.4-8.2)
[2024-01-24 15:51] LABS: ALK PHOS 215 U/L (45-117)
[2024-01-26 08:11] LABS: FOLLICLE STIMULATING HORMONE 13.8 mIU/mL (.); LUTEINIZING HORMONE < 0.3 mIU/mL (.)
== END 2024-01-24 15:20 | disposition home or self-care (01) ==
LOC: JONCCHEMO 14:42 → J7W 14:43 → JONCCHEMO 15:20
PROVIDERS: ATTEND Internal Medicine Hematology & Oncology
DX: Z51.11 Encounter for antineoplastic chemotherapy (principal); C50.919 Malignant neoplasm of unspecified site of unspecified female breast
CPT/HCPCS: 36415; 80048; 80076; 82306; 82670; 83001; 83002; 83735; 84703; 85025; 96402; J9202

== ENCOUNTER 2024-02-21 11:48 | Day surgery (SDC) | payer OTHER ==
[2024-02-21] MEDS: GOSERELIN ACETATE 3.6 MG IMPLANT SYRINGE SQ ONE (12:14)
[2024-02-21] MEDS: LIDOCAINE HCL 1%, 10 MG/ML (20ML VIAL) ID ONE (12:15)
[2024-02-21 13:32] LABS: BASO % 0.5 % (0-2.0); EOS % 0.7 % (0-4.5); HEMATOCRIT 38.1 % (32.4-45.2); HEMOGLOBIN 12.8 GM/dL (10.7-15.3); LYMPH % 42.5 % (8-40); MCH 28.4 pg (25.7-33.7); MCHC 33.7 g/dl (32.0-36.0); MEAN CELL VOLUME 84.2 fl (80-96); MEAN PLT VOLUME 9.2 fl (7.5-11.1); MONO % 10.1 % (3.8-10.2); NEUT % 46.2 % (42.8-82.8); PLATELET COUNT 255 10^3/uL (134-434); RBC 4.52 M/mm3 (3.60-5.2); RDW 14.7 % (11.6-15.6); WHITE BLOOD COUNT 2.5 K/mm3 (4.0-10.0)
[2024-02-21 13:50] LABS: CHLORIDE 107 mmol/L (98-107); POTASSIUM 3.8 mmol/L (3.5-5.1); SODIUM 139 mmol/L (136-145)
[2024-02-21 13:52] LABS: CALCIUM 9.4 mg/dL (8.5-10.1)
[2024-02-21 13:53] LABS: ALBUMIN 3.5 g/dl (3.4-5.0); ANION GAP 6 mmol/L (4-13); BLOOD UREA NITROGEN 6.8 mg/dL (7-18); CO2 26 mmol/L (21-32); GLUCOSE,RANDOM 85 mg/dL (74-106)
[2024-02-21 13:54] LABS: MAGNESIUM 2.3 mg/dL (1.8-2.4)
[2024-02-21 13:55] LABS: BILIRUBIN,DIRECT 0.1 mg/dL (0.0-0.2); SGOT/AST 17 U/L (15-37)
[2024-02-21 13:56] LABS: SGPT/ALT 21 U/L (13-61)
[2024-02-21 13:58] LABS: BILIRUBIN,TOTAL 0.3 mg/dL (0.2-1); TOT PROT 7.4 g/dl (6.4-8.2)
[2024-02-21 13:59] LABS: ALK PHOS 204 U/L (45-117)
[2024-02-21 14:05] LABS: CREATININE 0.6 mg/dL (0.55-1.3)
[2024-02-21 16:55] VITALS: BP 131/74; PULSE 70; RESP 20; TEMP 98.6
[2024-02-23 08:11] LABS: FOLLICLE STIMULATING HORMONE 16.3 mIU/mL (.); LUTEINIZING HORMONE < 0.3 mIU/mL (.)
== END 2024-02-21 12:30 | disposition home or self-care (01) ==
LOC: JONCCHEMO 11:48 → J7W 11:55 → JONCCHEMO 12:30
PROVIDERS: ATTEND Internal Medicine Hematology & Oncology
DX: Z51.11 Encounter for antineoplastic chemotherapy (principal); C50.412 Malignant neoplasm of upper-outer quadrant of left female breast; Z17.0 Estrogen receptor positive status [ER+]; M25.552 Pain in left hip
CPT/HCPCS: 36415; 72170-TC-FY; 73521-TC-FY; 80048; 80076; 82306; 82670; 83001; 83002; 83735; 84703; 85025; 96402; J9202

== ENCOUNTER 2024-03-20 10:14 | Day surgery (SDC) | payer OTHER ==
[2024-03-20] MEDS: GOSERELIN ACETATE 3.6 MG IMPLANT SYRINGE SQ ONE (10:41)
[2024-03-20] MEDS: LIDOCAINE HCL 1%, 10 MG/ML (20ML VIAL) ID ONE (10:42)
[2024-03-20 11:14] LABS: BASO % 0.6 % (0-2.0); EOS % 1.1 % (0-4.5); HEMATOCRIT 38.7 % (32.4-45.2); HEMOGLOBIN 12.8 GM/dL (10.7-15.3); LYMPH % 40.3 % (8-40); MCH 28.1 pg (25.7-33.7); MEAN CELL VOLUME 85.2 fl (80-96); MEAN PLT VOLUME 9.5 fl (7.5-11.1); PLATELET COUNT 231 10^3/uL (134-434); RBC 4.54 M/mm3 (3.60-5.2); WHITE BLOOD COUNT 2.8 K/mm3 (4.0-10.0)
[2024-03-20 11:46] LABS: CALCIUM 9.4 mg/dL (8.5-10.1); POTASSIUM 3.7 mmol/L (3.5-5.1)
[2024-03-20 11:47] LABS: ALBUMIN 3.8 g/dl (3.4-5.0); BLOOD UREA NITROGEN 11.1 mg/dL (7-18); MAGNESIUM 2.1 mg/dL (1.8-2.4)
[2024-03-20 11:49] LABS: BILIRUBIN,DIRECT 0.1 mg/dL (0.0-0.2)
[2024-03-20 11:50] LABS: CREATININE 0.6 mg/dL (0.55-1.3)
[2024-03-20 11:51] LABS: BILIRUBIN,TOTAL 0.4 mg/dL (0.2-1)
[2024-03-20 11:52] LABS: TOT PROT 7.9 g/dl (6.4-8.2)
[2024-03-20 17:35] VITALS: BP 123/69; PULSE 68; RESP 16; TEMP 98.1
[2024-03-21 08:11] LABS: FOLLICLE STIMULATING HORMONE 15.2 mIU/mL (.); LUTEINIZING HORMONE < 0.3 mIU/mL (.)
== END 2024-03-20 11:00 | disposition home or self-care (01) ==
LOC: JONCCHEMO 10:14 → J7W 10:15 → JONCCHEMO 11:00
PROVIDERS: ATTEND Internal Medicine Hematology & Oncology
DX: Z51.11 Encounter for antineoplastic chemotherapy (principal); C50.919 Malignant neoplasm of unspecified site of unspecified female breast
CPT/HCPCS: 36415; 80048; 80076; 82306; 82670; 83001; 83002; 83516; 83735; 84080; 84703; 85025; 96402; J9202

== ENCOUNTER 2024-04-17 11:20 | Day surgery (SDC) | payer OTHER ==
[2024-04-17] MEDS: GOSERELIN ACETATE 3.6 MG IMPLANT SYRINGE SQ ONE (11:38)
[2024-04-17] MEDS: LIDOCAINE HCL 1%, 10 MG/ML (20ML VIAL) ID ONE (11:40)
[2024-04-17 12:18] LABS: BASO % 0.6 % (0-2.0); EOS % 0.4 % (0-4.5); HEMATOCRIT 39.9 % (32.4-45.2); HEMOGLOBIN 13.3 GM/dL (10.7-15.3); LYMPH % 36.3 % (8-40); MCH 28.2 pg (25.7-33.7); MCHC 33.2 g/dl (32.0-36.0); MEAN PLT VOLUME 9.8 fl (7.5-11.1); MONO % 9.9 % (3.8-10.2); NEUT % 52.8 % (42.8-82.8); PLATELET COUNT 232 10^3/uL (134-434)
[2024-04-17 12:43] LABS: CHLORIDE 110 mmol/L (98-107); POTASSIUM 3.9 mmol/L (3.5-5.1); SODIUM 143 mmol/L (136-145)
[2024-04-17 12:46] LABS: ALBUMIN 3.8 g/dl (3.4-5.0); ANION GAP 10 mmol/L (4-13); BLOOD UREA NITROGEN 9.6 mg/dL (7-18); CALCIUM 9.8 mg/dL (8.5-10.1); CO2 24 mmol/L (21-32); GAMMA GLUTAMYL TRANSPEPTIDASE 61 U/L (5-85); GLUCOSE,RANDOM 88 mg/dL (74-106); MAGNESIUM 2.1 mg/dL (1.8-2.4)
[2024-04-17 12:49] LABS: BILIRUBIN,DIRECT 0.2 mg/dL (0.0-0.2); CREATININE 0.5 mg/dL (0.55-1.3); SGOT/AST 20 U/L (15-37)
[2024-04-17 12:50] LABS: BILIRUBIN,TOTAL 0.3 mg/dL (0.2-1)
[2024-04-17 12:51] LABS: SGPT/ALT 21 U/L (13-61); TOT PROT 7.8 g/dl (6.4-8.2)
[2024-04-17 12:52] LABS: ALK PHOS 226 U/L (45-117)
[2024-04-17 18:32] VITALS: BP 129/89; PULSE 73; RESP 20; TEMP 98.3
[2024-04-19 08:11] LABS: FOLLICLE STIMULATING HORMONE 14.3 mIU/mL (.); LUTEINIZING HORMONE < 0.3 mIU/mL (.)
== END 2024-04-17 12:15 | disposition home or self-care (01) ==
LOC: JONCCHEMO 11:20 → J7W 11:21 → JONCCHEMO 12:15
PROVIDERS: ATTEND Internal Medicine Hematology & Oncology
DX: Z51.11 Encounter for antineoplastic chemotherapy (principal); C50.412 Malignant neoplasm of upper-outer quadrant of left female breast; Z17.0 Estrogen receptor positive status [ER+]
CPT/HCPCS: 36415; 80048; 80076; 82306; 82670; 82977; 83001; 83002; 83735; 84703; 85025; 96402; J9202

== ENCOUNTER 2024-05-15 10:29 | Day surgery (SDC) | payer OTHER ==
[2024-05-15] MEDS: LIDOCAINE HCL 1%, 10 MG/ML (20ML VIAL) ID ONE (10:41)
[2024-05-15] MEDS: GOSERELIN ACETATE 3.6 MG IMPLANT SYRINGE SQ ONE (10:42)
[2024-05-15 11:03] LABS: EOS % 1.3 % (0-4.5); HEMATOCRIT 37.6 % (32.4-45.2); HEMOGLOBIN 12.4 GM/dL (10.7-15.3); LYMPH % 33.3 % (8-40); MCH 27.9 pg (25.7-33.7); MEAN CELL VOLUME 84.7 fl (80-96); MEAN PLT VOLUME 9.2 fl (7.5-11.1); MONO % 9.2 % (3.8-10.2); NEUT % 55.2 % (42.8-82.8); PLATELET COUNT 250 10^3/uL (134-434); RBC 4.44 M/mm3 (3.60-5.2); RDW 13.7 % (11.6-15.6); WHITE BLOOD COUNT 2.9 K/mm3 (4.0-10.0)
[2024-05-15 11:25] LABS: CHLORIDE 110 mmol/L (98-107); POTASSIUM 3.7 mmol/L (3.5-5.1); SODIUM 142 mmol/L (136-145)
[2024-05-15 11:29] LABS: ALBUMIN 3.6 g/dl (3.4-5.0); ANION GAP 7 mmol/L (4-13); CALCIUM 9.8 mg/dL (8.5-10.1); CO2 25 mmol/L (21-32)
[2024-05-15 11:30] LABS: BLOOD UREA NITROGEN 8.3 mg/dL (7-18); GLUCOSE,RANDOM 92 mg/dL (74-106)
[2024-05-15 11:32] LABS: BILIRUBIN,DIRECT 0.1 mg/dL (0.0-0.2); SGPT/ALT 19 U/L (13-61)
[2024-05-15 11:33] LABS: CREATININE 0.5 mg/dL (0.55-1.3); SGOT/AST 18 U/L (15-37)
[2024-05-15 11:35] LABS: ALK PHOS 212 U/L (45-117); BILIRUBIN,TOTAL 0.4 mg/dL (0.2-1); TOT PROT 7.6 g/dl (6.4-8.2)
[2024-05-15 12:11] VITALS: BP 120/69; PULSE 70; RESP 18; TEMP 98.4
[2024-05-16 08:11] LABS: FOLLICLE STIMULATING HORMONE 14.3 mIU/mL (.); LUTEINIZING HORMONE < 0.3 mIU/mL (.)
== END 2024-05-15 11:00 | disposition home or self-care (01) ==
LOC: JONCCHEMO 10:29 → J7W 10:30 → JONCCHEMO 11:00
PROVIDERS: ATTEND Internal Medicine Hematology & Oncology
DX: Z51.11 Encounter for antineoplastic chemotherapy (principal); C50.412 Malignant neoplasm of upper-outer quadrant of left female breast
CPT/HCPCS: 36415; 80048; 80076; 82306; 82670; 83001; 83002; 83735; 84703; 85025; 86704; 87340; 87517; 87522; 96402; J9202

== ENCOUNTER 2024-06-12 10:06 | Day surgery (SDC) | payer OTHER ==
[2024-06-12 10:58] VITALS: BP 111/52; PULSE 62; RESP 18; TEMP 98
[2024-06-12] MEDS: LIDOCAINE HCL 1%, 10 MG/ML (20ML VIAL) ID ONE (11:02)
[2024-06-12] MEDS: GOSERELIN ACETATE 3.6 MG IMPLANT SYRINGE SQ ONE (11:02)
[2024-06-12 11:48] LABS: POTASSIUM 3.7 mmol/L (3.5-5.1)
[2024-06-12 11:50] LABS: ALBUMIN 3.4 g/dl (3.4-5.0); CALCIUM 9.7 mg/dL (8.5-10.1)
[2024-06-12 11:51] LABS: BLOOD UREA NITROGEN 11.8 mg/dL (7-18)
[2024-06-12 11:53] LABS: BILIRUBIN,DIRECT 0.1 mg/dL (0.0-0.2); CREATININE 0.5 mg/dL (0.55-1.3)
[2024-06-12 11:55] LABS: BILIRUBIN,TOTAL 0.3 mg/dL (0.2-1); TOT PROT 7.2 g/dl (6.4-8.2)
[2024-06-12 11:56] LABS: BASO % 0.3 % (0-2.0); EOS % 0.9 % (0-4.5); HEMATOCRIT 36.5 % (32.4-45.2); HEMOGLOBIN 12.3 GM/dL (10.7-15.3); LYMPH % 41.6 % (8-40); MCH 28.4 pg (25.7-33.7); MCHC 33.8 g/dl (32.0-36.0); MEAN PLT VOLUME 9.6 fl (7.5-11.1); MONO % 9.2 % (3.8-10.2); PLATELET COUNT 228 10^3/uL (134-434); RBC 4.34 M/mm3 (3.60-5.2); RDW 14.1 % (11.6-15.6); WHITE BLOOD COUNT 2.9 K/mm3 (4.0-10.0)
[2024-06-13 08:12] LABS: FOLLICLE STIMULATING HORMONE 14.3 mIU/mL (.); LUTEINIZING HORMONE < 0.3 mIU/mL (.)
== END 2024-06-12 11:10 | disposition home or self-care (01) ==
LOC: JONCCHEMO 10:06 → J7W 10:06 → JONCCHEMO 11:10
PROVIDERS: ATTEND Internal Medicine Hematology & Oncology
DX: Z51.11 Encounter for antineoplastic chemotherapy (principal); C50.919 Malignant neoplasm of unspecified site of unspecified female breast
CPT/HCPCS: 36415; 80048; 80076; 82306; 82670; 83001; 83002; 83735; 84703; 85025; 96402; J9202

== ENCOUNTER 2024-07-10 10:04 | Day surgery (SDC) | payer OTHER ==
[2024-07-10] MEDS: GOSERELIN ACETATE 3.6 MG IMPLANT SYRINGE SQ ONE (10:20)
[2024-07-10] MEDS: LIDOCAINE HCL 1%, 10 MG/ML (20ML VIAL) ID ONE (10:28)
[2024-07-10 10:34] VITALS: BP 126/64; PULSE 68; RESP 20; TEMP 98.5
[2024-07-10 10:47] LABS: BASO % 0.9 % (0-2.0); EOS % 1.1 % (0-4.5); HEMATOCRIT 38.1 % (32.4-45.2); HEMOGLOBIN 12.7 GM/dL (10.7-15.3); LYMPH % 42.5 % (8-40); MCH 28.3 pg (25.7-33.7); MCHC 33.4 g/dl (32.0-36.0); MEAN CELL VOLUME 84.7 fl (80-96); MEAN PLT VOLUME 9.9 fl (7.5-11.1); MONO % 9.7 % (3.8-10.2); NEUT % 45.8 % (42.8-82.8); PLATELET COUNT 222 10^3/uL (134-434); RBC 4.49 M/mm3 (3.60-5.2); RDW 14.6 % (11.6-15.6); WHITE BLOOD COUNT 2.8 K/mm3 (4.0-10.0)
[2024-07-10 11:04] LABS: POTASSIUM 3.8 mmol/L (3.5-5.1)
[2024-07-10 11:06] LABS: CALCIUM 9.6 mg/dL (8.5-10.1)
[2024-07-10 11:07] LABS: ALBUMIN 3.8 g/dl (3.4-5.0); BLOOD UREA NITROGEN 11.9 mg/dL (7-18)
[2024-07-10 11:09] LABS: BILIRUBIN,DIRECT 0.1 mg/dL (0.0-0.2)
[2024-07-10 11:10] LABS: CREATININE 0.5 mg/dL (0.55-1.3)
[2024-07-10 11:11] LABS: BILIRUBIN,TOTAL 0.3 mg/dL (0.2-1); TOT PROT 7.7 g/dl (6.4-8.2)
[2024-07-12 08:09] LABS: LUTEINIZING HORMONE < 0.3 mIU/mL (.)
== END 2024-07-10 10:35 | disposition home or self-care (01) ==
LOC: JONCCHEMO 10:04 → J7W 10:05 → JONCCHEMO 10:35
PROVIDERS: ATTEND Internal Medicine Hematology & Oncology
DX: Z51.11 Encounter for antineoplastic chemotherapy (principal); C50.919 Malignant neoplasm of unspecified site of unspecified female breast
CPT/HCPCS: 36415; 80048; 80076; 82306; 82670; 83001; 83002; 83735; 84703; 85025; 96402; J9202

== ENCOUNTER 2024-08-07 11:07 | Day surgery (SDC) | payer OTHER ==
[2024-08-07] MEDS: LIDOCAINE HCL 1%, 10 MG/ML (20ML VIAL) ID ONE (11:30)
[2024-08-07] MEDS: GOSERELIN ACETATE 3.6 MG IMPLANT SYRINGE SQ ONE (11:30)
[2024-08-07 11:57] LABS: BASO % 0.7 % (0-2.0); EOS % 0.8 % (0-4.5); HEMATOCRIT 37.7 % (32.4-45.2); HEMOGLOBIN 12.6 GM/dL (10.7-15.3); MCHC 33.3 g/dl (32.0-36.0); MEAN CELL VOLUME 84.1 fl (80-96); MEAN PLT VOLUME 9.5 fl (7.5-11.1); MONO % 5.4 % (3.8-10.2); NEUT % 75.1 % (42.8-82.8); PLATELET COUNT 247 10^3/uL (134-434); RBC 4.48 M/mm3 (3.60-5.2); WHITE BLOOD COUNT 4.4 K/mm3 (4.0-10.0)
[2024-08-07 12:24] LABS: CHLORIDE 110 mmol/L (98-107); POTASSIUM 3.5 mmol/L (3.5-5.1); SODIUM 141 mmol/L (136-145)
[2024-08-07 12:27] LABS: ANION GAP 7 mmol/L (4-13); BLOOD UREA NITROGEN 9.4 mg/dL (7-18); CALCIUM 9.3 mg/dL (8.5-10.1); CO2 23 mmol/L (21-32); MAGNESIUM 1.8 mg/dL (1.8-2.4)
[2024-08-07 12:28] LABS: GLUCOSE,RANDOM 107 mg/dL (74-106)
[2024-08-07 12:32] LABS: CREATININE 0.6 mg/dL (0.55-1.3)
[2024-08-07 12:33] LABS: ALBUMIN 3.5 g/dl (3.4-5.0)
[2024-08-07 12:36] LABS: BILIRUBIN,DIRECT 0.1 mg/dL (0.0-0.2)
[2024-08-07 12:38] LABS: BILIRUBIN,TOTAL 0.2 mg/dL (0.2-1); TOT PROT 7.4 g/dl (6.4-8.2)
[2024-08-07 15:14] VITALS: BP 110/64; PULSE 75; RESP 20; TEMP 98
== END 2024-08-07 11:45 | disposition home or self-care (01) ==
LOC: JONCCHEMO 11:07 → J7W 11:08 → JONCCHEMO 11:45
PROVIDERS: ATTEND Internal Medicine Hematology & Oncology
DX: Z51.11 Encounter for antineoplastic chemotherapy (principal); C50.412 Malignant neoplasm of upper-outer quadrant of left female breast; Z17.0 Estrogen receptor positive status [ER+]
CPT/HCPCS: 36415; 80048; 80076; 82306; 82670; 83735; 84703; 85025; 96402; J9202

== ENCOUNTER 2024-08-08 12:22 | Emergency (ER) | payer OTHER ==
[2024-08-08 12:28] VITALS: RESP 18; BMI 37.7
[2024-08-08] MEDS ORDERED: ACETAMINOPHEN INJECTION 100 ML ONE (13:08)
[2024-08-08] MEDS ORDERED: METOCLOPRAMIDE HCL INJECTION 10 MG/2 ML VIAL ONE (13:08)
[2024-08-08] MEDS: SODIUM CHLORIDE 0.9% 500 ML INFUS.BAG IV ONE (13:18)
[2024-08-08] MEDS: METOCLOPRAMIDE HCL INJECTION 10 MG/2 ML VIAL IM ONE (13:18)
[2024-08-08] MEDS: ACETAMINOPHEN 1000 MG/100 ML BAG IVPB ONE (13:18)
[2024-08-08 13:24] LABS: HEMATOCRIT 38.7 % (32.4-45.2); HEMOGLOBIN 12.9 GM/dL (10.7-15.3); MCH 27.7 pg (25.7-33.7); MCHC 33.4 g/dl (32.0-36.0); MEAN CELL VOLUME 82.9 fl (80-96); MEAN PLT VOLUME 9.6 fl (7.5-11.1); PLATELET COUNT 217 10^3/uL (134-434); RBC 4.66 M/mm3 (3.60-5.2); RDW 13.8 % (11.6-15.6); WHITE BLOOD COUNT 4.1 K/mm3 (4.0-10.0)
[2024-08-08 13:47] LABS: POTASSIUM 3.5 mmol/L (3.5-5.1)
[2024-08-08 13:49] LABS: ALBUMIN 3.8 g/dl (3.4-5.0); BLOOD UREA NITROGEN 6.8 mg/dL (7-18); CALCIUM 9.6 mg/dL (8.5-10.1)
[2024-08-08 13:53] LABS: CREATININE 0.8 mg/dL (0.55-1.3)
[2024-08-08 13:54] LABS: BILIRUBIN,TOTAL 0.4 mg/dL (0.2-1); TOT PROT 8.2 g/dl (6.4-8.2)
[2024-08-08 14:29] VITALS: BP 137/88; PULSE 107; TEMP 99.8
[2024-08-08 14:31] LABS: ANISOCYTOSIS 0; MACROCYTOSIS 0
== END 2024-08-08 14:51 | disposition home or self-care (01) ==
LOC: JER 12:22
PROC: 3E033NZ Introduction of Analgesics, Hypnotics, Sedatives into Peripheral Vein, Percutaneous Approach (ICD-10-PCS; principal; 2024-08-08)
PROC: 3E023GC Introduction of Other Therapeutic Substance into Muscle, Percutaneous Approach (ICD-10-PCS; 2024-08-08)
DX: J10.1 Influenza due to other identified influenza virus with other respiratory manifestations (principal); R50.9 Fever, unspecified; R11.2 Nausea with vomiting, unspecified; R51.9 Headache, unspecified; Z20.822 Contact with and (suspected) exposure to COVID-19
CPT/HCPCS: 0241U-QW; 36415; 80053; 85025; 99284-25; J0131

== ENCOUNTER 2024-09-04 13:07 | Day surgery (SDC) | payer OTHER ==
[~2024-09-04 13:07] MED LIST changes: +GOSERELIN ACETATE 3.6 MG IMPLANT SYRINGE SQ ONE; -LIDOCAINE HCL 1%, 10 MG/ML (20ML VIAL) ID ONE
[2024-09-04] MEDS: GOSERELIN ACETATE 3.6 MG IMPLANT SYRINGE SQ ONE (13:24)
[2024-09-04 13:26] LABS: BASO % 0.5 % (0-2.0); HEMATOCRIT 36.5 % (32.4-45.2); HEMOGLOBIN 12.2 GM/dL (10.7-15.3); LYMPH % 41.8 % (8-40); MCH 27.9 pg (25.7-33.7); MCHC 33.4 g/dl (32.0-36.0); MEAN CELL VOLUME 83.4 fl (80-96); MEAN PLT VOLUME 9.1 fl (7.5-11.1); MONO % 10.7 % (3.8-10.2); PLATELET COUNT 231 10^3/uL (134-434); RBC 4.37 M/mm3 (3.60-5.2); RDW 14.4 % (11.6-15.6)
[2024-09-04] MEDS: LIDOCAINE HCL 1%, 10 MG/ML (20ML VIAL) ID ONE (13:32)
[2024-09-04 14:00] LABS: CHLORIDE 108 mmol/L (98-107); POTASSIUM 3.5 mmol/L (3.5-5.1); SODIUM 141 mmol/L (136-145)
[2024-09-04 14:03] LABS: ALBUMIN 3.5 g/dl (3.4-5.0); ANION GAP 6 mmol/L (4-13); BLOOD UREA NITROGEN 12.1 mg/dL (7-18); CALCIUM 9.7 mg/dL (8.5-10.1); CO2 27 mmol/L (21-32); GLUCOSE,RANDOM 92 mg/dL (74-106)
[2024-09-04 14:06] LABS: BILIRUBIN,DIRECT 0.1 mg/dL (0.0-0.2); CREATININE 0.6 mg/dL (0.55-1.3); SGOT/AST 17 U/L (15-37); SGPT/ALT 16 U/L (13-61)
[2024-09-04 14:08] LABS: BILIRUBIN,TOTAL 0.2 mg/dL (0.2-1); TOT PROT 7.4 g/dl (6.4-8.2)
[2024-09-04 14:09] LABS: ALK PHOS 195 U/L (45-117)
[2024-09-04 18:11] VITALS: BP 126/71; PULSE 71; RESP 20; TEMP 98.6
[2024-09-06 10:09] LABS: FOLLICLE STIMULATING HORMONE 11.8 mIU/mL (.); LUTEINIZING HORMONE < 0.3 mIU/mL (.)
== END 2024-09-04 13:55 | disposition home or self-care (01) ==
LOC: JONCCHEMO 13:07 → J7W 13:08 → JONCCHEMO 13:55
PROVIDERS: ATTEND Internal Medicine Hematology & Oncology
DX: Z51.11 Encounter for antineoplastic chemotherapy (principal); C50.919 Malignant neoplasm of unspecified site of unspecified female breast
CPT/HCPCS: 36415; 80048; 80076; 82306; 82670; 83001; 83002; 83735; 84703; 85025; 96401; J9202

== ENCOUNTER 2024-10-02 13:50 | Day surgery (SDC) | payer OTHER ==
[2024-10-02] MEDS: GOSERELIN ACETATE 3.6 MG IMPLANT SYRINGE SQ ONE (13:57)
[2024-10-02] MEDS: LIDOCAINE HCL 1%, 10 MG/ML (20ML VIAL) ID ONE (13:57)
[2024-10-02 14:05] LABS: BASO % 0.8 % (0-2.0); EOS % 0.5 % (0-4.5); HEMATOCRIT 37.5 % (32.4-45.2); HEMOGLOBIN 12.1 GM/dL (10.7-15.3); LYMPH % 34.2 % (8-40); MCH 27.7 pg (25.7-33.7); MCHC 32.2 g/dl (32.0-36.0); MEAN PLT VOLUME 9.5 fl (7.5-11.1); MONO % 8.4 % (3.8-10.2); NEUT % 56.1 % (42.8-82.8); PLATELET COUNT 240 10^3/uL (134-434); RBC 4.37 M/mm3 (3.60-5.2); WHITE BLOOD COUNT 3.6 K/mm3 (4.0-10.0)
[2024-10-02 14:34] LABS: CHLORIDE 110 mmol/L (98-107); POTASSIUM 3.5 mmol/L (3.5-5.1); SODIUM 142 mmol/L (136-145)
[2024-10-02 14:36] LABS: CALCIUM 9.5 mg/dL (8.5-10.1)
[2024-10-02 14:37] LABS: ALBUMIN 3.6 g/dl (3.4-5.0); ANION GAP 7 mmol/L (4-13); BLOOD UREA NITROGEN 10.5 mg/dL (7-18); CO2 25 mmol/L (21-32); GLUCOSE,RANDOM 92 mg/dL (74-106)
[2024-10-02 14:39] LABS: BILIRUBIN,DIRECT 0.1 mg/dL (0.0-0.2)
[2024-10-02 14:40] LABS: CREATININE 0.5 mg/dL (0.55-1.3); SGOT/AST 17 U/L (15-37)
[2024-10-02 14:41] LABS: BILIRUBIN,TOTAL 0.3 mg/dL (0.2-1); SGPT/ALT 15 U/L (13-61); TOT PROT 7.4 g/dl (6.4-8.2)
[2024-10-02 14:43] LABS: ALK PHOS 170 U/L (45-117)
[2024-10-02 17:14] VITALS: BP 118/63; PULSE 72; TEMP 98.7
[2024-10-02 17:26] VITALS: RESP 20
[2024-10-03 15:07] LABS: FOLLICLE STIMULATING HORMONE 12.1 mIU/mL (.); LUTEINIZING HORMONE < 0.3 mIU/mL (.)
== END 2024-10-02 14:10 | disposition home or self-care (01) ==
LOC: JONCCHEMO 13:50 → J7W 13:52 → JONCCHEMO 14:10
PROVIDERS: ATTEND Internal Medicine Hematology & Oncology
DX: Z51.11 Encounter for antineoplastic chemotherapy (principal); C50.412 Malignant neoplasm of upper-outer quadrant of left female breast; Z17.0 Estrogen receptor positive status [ER+]
CPT/HCPCS: 36415; 80048; 80076; 82306; 82670; 83001; 83002; 83735; 84703; 85025; 96402; J9202

== ENCOUNTER 2024-10-30 12:24 | Day surgery (SDC) | payer OTHER ==
[2024-10-30] MEDS: GOSERELIN ACETATE 3.6 MG IMPLANT SYRINGE SQ ONE (12:44)
[2024-10-30] MEDS: LIDOCAINE HCL 1%, 10 MG/ML (20ML VIAL) ID ONE (12:52)
[2024-10-30 12:55] LABS: ABSOLUTE IMMATURE GRANULOCYTES 0.01 x10^3/uL (0.0-0.031); BASOPHILS # 0.01 x10^3/uL (0.01-0.08); EOSINOPHIL % 0.6 % (0.7-5.8); EOSINOPHILS # 0.02 x10^3/uL (0.04-0.36); HEMATOCRIT 39.2 % (34.1-44.9); HEMOGLOBIN 12.4 g/dL (11.2-15.7); MCHC 31.6 g/dl (32.2-35.5); MEAN CELL VOLUME 86.3 fl (79.4-94.8); MEAN PLT VOLUME 11.4 fl (9.4-12.3); MONOCYTE # 0.35 x10^3/uL (0.24-0.86); MONOCYTE % 10.8 % (4.7-12.5); PLATELET COUNT 263 x10^3/uL (182-369); RDW 13.4 % (12.2-17.1)
[2024-10-30 13:18] LABS: CHLORIDE 108 mmol/L (98-107); POTASSIUM 3.7 mmol/L (3.5-5.1); SODIUM 141 mmol/L (136-145)
[2024-10-30 13:20] LABS: BLOOD UREA NITROGEN 9.2 mg/dL (7-18); CALCIUM 9.3 mg/dL (8.5-10.1)
[2024-10-30 13:21] LABS: ALBUMIN 3.5 g/dl (3.4-5.0); ANION GAP 6 mmol/L (4-13); CO2 27 mmol/L (21-32); GLUCOSE,RANDOM 89 mg/dL (74-106); MAGNESIUM 1.8 mg/dL (1.8-2.4)
[2024-10-30 13:23] LABS: BILIRUBIN,DIRECT 0.1 mg/dL (0.0-0.2); SGOT/AST 19 U/L (15-37); SGPT/ALT 19 U/L (13-61)
[2024-10-30 13:24] LABS: CREATININE 0.6 mg/dL (0.55-1.3)
[2024-10-30 13:25] LABS: BILIRUBIN,TOTAL 0.3 mg/dL (0.2-1); TOT PROT 7.3 g/dl (6.4-8.2)
[2024-10-30 13:26] LABS: ALK PHOS 175 U/L (45-117)
[2024-10-30 17:17] VITALS: BP 108/51; PULSE 70; RESP 18; TEMP 98.5
== END 2024-10-30 13:00 | disposition home or self-care (01) ==
LOC: JONCCHEMO 12:24
PROVIDERS: ATTEND Internal Medicine Hematology & Oncology
DX: Z51.11 Encounter for antineoplastic chemotherapy (principal); C50.412 Malignant neoplasm of upper-outer quadrant of left female breast; Z17.0 Estrogen receptor positive status [ER+]
CPT/HCPCS: 36415; 80048; 80076; 82306; 82670; 83735; 84703; 85025; 96402; J9202

== ENCOUNTER 2024-11-27 13:01 | Day surgery (SDC) | payer OTHER ==
[2024-11-27] MEDS: LIDOCAINE HCL 1%, 10 MG/ML (20ML VIAL) ID ONE (13:17)
[2024-11-27] MEDS: GOSERELIN ACETATE 3.6 MG IMPLANT SYRINGE SQ ONE (13:17)
[2024-11-27 13:50] LABS: ABSOLUTE IMMATURE GRANULOCYTES 0.01 x10^3/uL (0.0-0.031); BASOPHILS # 0.02 x10^3/uL (0.01-0.08); EOSINOPHIL % 0.5 % (0.7-5.8); EOSINOPHILS # 0.02 x10^3/uL (0.04-0.36); HEMATOCRIT 37.6 % (34.1-44.9); HEMOGLOBIN 12.1 g/dL (11.2-15.7); MCHC 32.2 g/dl (32.2-35.5); MEAN CELL VOLUME 84.5 fl (79.4-94.8); MEAN PLT VOLUME 11.1 fl (9.4-12.3); MONOCYTE # 0.32 x10^3/uL (0.24-0.86); MONOCYTE % 8.5 % (4.7-12.5); PLATELET COUNT 274 x10^3/uL (182-369); RDW 12.8 % (12.2-17.1)
[2024-11-27 14:18] LABS: CHLORIDE 106 mmol/L (98-107); POTASSIUM 3.7 mmol/L (3.5-5.1); SODIUM 140 mmol/L (136-145)
[2024-11-27 14:22] LABS: ALBUMIN 3.6 g/dl (3.4-5.0); ANION GAP 9 mmol/L (4-13); BLOOD UREA NITROGEN 14.6 mg/dL (7-18); CALCIUM 9.9 mg/dL (8.5-10.1); CO2 25 mmol/L (21-32); GLUCOSE,RANDOM 83 mg/dL (74-106); MAGNESIUM 2.1 mg/dL (1.8-2.4)
[2024-11-27 14:25] LABS: BILIRUBIN,DIRECT 0.1 mg/dL (0.0-0.2); CREATININE 0.5 mg/dL (0.55-1.3); SGOT/AST 18 U/L (15-37); SGPT/ALT 21 U/L (13-61)
[2024-11-27 14:26] LABS: ALK PHOS 166 U/L (45-117)
[2024-11-27 14:27] LABS: BILIRUBIN,TOTAL 0.2 mg/dL (0.2-1); TOT PROT 7.6 g/dl (6.4-8.2)
[2024-11-27 16:38] VITALS: BP 121/49; PULSE 71; RESP 20; TEMP 98.4
== END 2024-11-27 13:30 | disposition home or self-care (01) ==
LOC: JONCCHEMO 13:01
PROVIDERS: ATTEND Internal Medicine Hematology & Oncology
DX: Z51.11 Encounter for antineoplastic chemotherapy (principal); C50.919 Malignant neoplasm of unspecified site of unspecified female breast; Z17.0 Estrogen receptor positive status [ER+]
CPT/HCPCS: 36415; 80048; 80076; 82306; 82670; 83735; 84703; 85025; 96402; J9202

== ENCOUNTER 2025-03-19 10:50 | Day surgery (SDC) | payer OTHER ==
[2025-03-19] MEDS: LIDOCAINE HCL 1%, 10 MG/ML (20ML VIAL) ID ONE (11:14)
[2025-03-19] MEDS: GOSERELIN ACETATE 3.6 MG IMPLANT SYRINGE SQ ONE (11:16)
[2025-03-19 11:20] LABS: MCHC 32.3 g/dl (32.2-35.5); MEAN CELL VOLUME 85.6 fl (79.4-94.8); MEAN PLT VOLUME 11.2 fl (9.4-12.3); RDW 14.0 % (12.2-17.1)
[2025-03-19 11:46] LABS: GLUCOSE,RANDOM 93 mg/dL (74-106); TOT PROT 7.6 g/dl (6.4-8.2)
[2025-03-19 11:49] LABS: ALK PHOS 171 U/L (40-150)
[2025-03-19 11:50] LABS: CO2 25 mmol/L (21-32)
[2025-03-19 11:51] LABS: SGOT/AST 22 U/L (5-34); SGPT/ALT 13 U/L (0-55)
[2025-03-19 11:52] LABS: CREATININE 0.52 mg/dL (0.55-1.3)
[2025-03-19 14:34] VITALS: BP 118/57; PULSE 68; RESP 18
[2025-03-20 08:07] LABS: LUTEINIZING HORMONE < 0.3 mIU/mL (.)
== END 2025-03-19 11:45 | disposition home or self-care (01) ==
LOC: JONCCHEMO 10:50 → J7W 10:54 → JONCCHEMO 11:45
PROVIDERS: ATTEND Internal Medicine Hematology & Oncology
DX: Z51.11 Encounter for antineoplastic chemotherapy (principal)
CPT/HCPCS: 36415; 80048; 80076; 82306; 82670; 83001; 83002; 83735; 84703; 85025; 96402; J9202

== ENCOUNTER 2025-04-16 10:03 | Day surgery (SDC) | payer OTHER ==
[2025-04-16] MEDS: GOSERELIN ACETATE 3.6 MG IMPLANT SYRINGE SQ ONE (10:32)
[2025-04-16] MEDS: LIDOCAINE HCL 1%, 10 MG/ML (20ML VIAL) ID ONE (10:32)
[2025-04-16 10:56] LABS: ABSOLUTE IMMATURE GRANULOCYTES 0.01 x10^3/uL (0.0-0.031); BASOPHILS # 0.01 x10^3/uL (0.01-0.08); EOSINOPHIL % 0.9 % (0.7-5.8); EOSINOPHILS # 0.03 x10^3/uL (0.04-0.36); MCHC 32.5 g/dl (32.2-35.5); MEAN CELL VOLUME 85.7 fl (79.4-94.8); MEAN PLT VOLUME 11.2 fl (9.4-12.3); MONOCYTE # 0.32 x10^3/uL (0.24-0.86); MONOCYTE % 9.3 % (4.7-12.5); RDW 13.3 % (12.2-17.1)
[2025-04-16 11:33] LABS: GLUCOSE,RANDOM 84 mg/dL (74-106)
[2025-04-16 11:34] LABS: TOT PROT 7.2 g/dl (6.4-8.2)
[2025-04-16 11:35] LABS: CO2 23 mmol/L (21-32)
[2025-04-16 11:36] LABS: ALK PHOS 160 U/L (40-150)
[2025-04-16 11:39] LABS: CREATININE 0.46 mg/dL (0.55-1.3); SGOT/AST 20 U/L (5-34); SGPT/ALT 12 U/L (0-55)
[2025-04-16 17:08] VITALS: BP 131/59; PULSE 68; RESP 20; TEMP 98.2
[2025-04-18 08:07] LABS: LUTEINIZING HORMONE < 0.3 mIU/mL (.)
== END 2025-04-16 10:40 | disposition home or self-care (01) ==
LOC: JONCCHEMO 10:03
PROVIDERS: ATTEND Internal Medicine Hematology & Oncology
DX: Z51.11 Encounter for antineoplastic chemotherapy (principal); C50.919 Malignant neoplasm of unspecified site of unspecified female breast; Z17.0 Estrogen receptor positive status [ER+]
CPT/HCPCS: 36415; 80048; 80076; 82306; 82607; 82670; 83001; 83002; 83735; 84703; 85025; 86850; 86900; 86901; 86902; 88300-TC; 96402; J9202